=== PATIENT | female | born 1955 | race Caucasian/White ===

== ENCOUNTER → 2016-09-19 | Outpatient (CLI) | payer BC ==
[2016-09-19 16:08] LABS: Estradiol 46 pg/mL
== END | disposition home or self-care (01) ==
LOC: LABWHC1 14:53
PROVIDERS: ATTEND Surgery
DX: E34.9 Endocrine disorder, unspecified (principal); R53.81 Other malaise; R61 Generalized hyperhidrosis; G47.00 Insomnia, unspecified
CPT/HCPCS: 36415; 82670; 84140; 84144; 84402; 84403

== ENCOUNTER → 2017-07-30 | Outpatient (CLI) | payer BC ==
[2017-07-30 16:51] LABS: Progesterone 17.4 ng/mL
[2017-07-30 16:53] LABS: DHEA Sulfate 46.2 ug/dL (26.0-430.0)
== END | disposition home or self-care (01) ==
LOC: LABWHC1 09:50
PROVIDERS: ATTEND Surgery
DX: G47.00 Insomnia, unspecified (principal); E34.9 Endocrine disorder, unspecified; R68.82 Decreased libido; R61 Generalized hyperhidrosis; R53.81 Other malaise
CPT/HCPCS: 36415; 82627; 82670; 84140; 84144; 84402; 84403

== ENCOUNTER → 2018-01-29 | Outpatient (CLI) | payer OTHER ==
--- NOTE | 2018-02-04 14:50 | MM ---
Reason for exam: screening (asymptomatic). Last mammogram was performed 13 years and 3 months ago. History: Patient is postmenopausal. Taking estrogen for 1 year. Taking progesterone for 1 year. Physical Findings: A clinical breast exam by your physician is recommended on an annual basis and results should be correlated with mammographic findings. MG Screening Mammo w CAD Bilateral CC and MLO view(s) were taken. Prior study comparison: August 22, 2015, mammogram, performed at [facility]. May 31, 2014, mammogram, performed at [facility]. January 13, 2013, mammogram, performed at [facility]. October 02, 2007, mammogram, performed at [facility]. The breast tissue is heterogeneously dense. This may lower the sensitivity of mammography. Stable benign calcifications. There is no discrete abnormality. No significant changes when compared with prior studies. ASSESSMENT: Benign, BI-RAD 2 RECOMMENDATION: Routine screening mammogram of both breasts in 1 year.
== END | disposition home or self-care (01) ==
LOC: RADMAMWWP 13:54
DX: Z12.31 Encounter for screening mammogram for malignant neoplasm of breast (principal)
CPT/HCPCS: 77067

== ENCOUNTER → 2018-05-23 | Outpatient (CLI) | payer BC | END | disposition home or self-care (01) | LOC: LABWHC1 09:53 | PROVIDERS: ATTEND Surgery | DX: E34.9 Endocrine disorder, unspecified (principal); R53.81 Other malaise; G47.00 Insomnia, unspecified; R68.82 Decreased libido; R61 Generalized hyperhidrosis; Z51.81 Encounter for therapeutic drug level monitoring | CPT/HCPCS: 36415; 82670; 84403 ==

== ENCOUNTER → 2018-09-30 | Outpatient (CLI) | payer BC ==
[2018-09-30 16:02] LABS: Progesterone 41.1 ng/mL
== END | disposition home or self-care (01) ==
LOC: LABWHC1 07:43
PROVIDERS: ATTEND Surgery
DX: Z51.81 Encounter for therapeutic drug level monitoring (principal); R61 Generalized hyperhidrosis; E34.9 Endocrine disorder, unspecified; R53.81 Other malaise; G47.00 Insomnia, unspecified; Z79.899 Other long term (current) drug therapy
CPT/HCPCS: 36415; 82670; 84144; 84403

== ENCOUNTER → 2018-12-31 | Outpatient (CLI) | payer BC ==
--- NOTE | 2018-12-31 16:32 | BD ---
EXAMINATION TYPE: Axial Bone Density DATE OF EXAM: 12/31/2018 COMPARISON: 2014 CLINICAL HISTORY: osteoporosis Height: 5'3 Weight: 169 FRAX RISK QUESTIONS: Family History (Parent hip fracture): y Secondary Osteoporosis: RISK FACTORS HISTORY OF: History of Wrist Fracture: unsure which wrist When: age 15 Diet low in dairy products/other sources of calcium: y Postmenopausal woman: y Take estrogen and/or progesterone medications: y How lon years MEDICATIONS: Additional Medications: cholesterol Additional History: EXAM MEASUREMENTS: Bone mineral densitometry was performed using the [employer] System. Bone mineral density as measured about the Lumbar spine is: ----- L1-L4(G/cm2): 0.780 T Score Values are as follows: ----- L2: -3.5 ----- L3: -3.1 ----- L4: -3.5 ----- L1-L4: -3.3 Bone mineral density has: Increased 8.8% since study of: 11/16/2014 Bone mineral density about the R hip (g/cm2): 0.614 Bone mineral density about the L hip (g/cm2): 0.614 T Score values are as follows: -----R Neck: -3.1 -----L Neck: -3.0 -----R Total: -2.5 -----L Total: -2.3 Bone mineral density has: Decreased -0.3% since study of: 11/16/2014 IMPRESSION: Osteoporosis (T Score less than -2.5). There is increased fracture risk and therapy is usually indicated based on age. Re-Screen 1-2 years. NOTE: T-SCORE=SD OF THE YOUNG ADULT MEAN.
== END | disposition home or self-care (01) ==
LOC: RADBDWWP 12:39
PROVIDERS: ATTEND Obstetrics & Gynecology
DX: M81.0 Age-related osteoporosis without current pathological fracture (principal)
CPT/HCPCS: 77080

== ENCOUNTER → 2019-04-03 | Outpatient (CLI) | payer OTHER ==
--- NOTE | 2019-04-06 09:38 | MM ---
Reason for exam: screening (asymptomatic). Last mammogram was performed 1 year and 2 months ago. History: Patient is postmenopausal. Taking estrogen for 1 year. Taking progesterone for 1 year. Physical Findings: A clinical breast exam by your physician is recommended on an annual basis and results should be correlated with mammographic findings. MG Screening Mammo w CAD Bilateral CC and MLO view(s) were taken. Prior study comparison: January 29, 2018, bilateral MG screening mammo w CAD. August 22, 2015, mammogram, performed at [facility]. The breast tissue is heterogeneously dense. This may lower the sensitivity of mammography. Benign appearing bilateral calcifications. No suspicious abnormality. No significant changes when compared with prior studies. ASSESSMENT: Benign, BI-RAD 2 RECOMMENDATION: Routine screening mammogram of both breasts in 1 year.
== END | disposition home or self-care (01) ==
LOC: RADMAMWWP 10:57
PROVIDERS: ATTEND Nurse Practitioner Acute Care
DX: Z12.31 Encounter for screening mammogram for malignant neoplasm of breast (principal)
CPT/HCPCS: 77067

== ENCOUNTER → 2019-04-03 | Outpatient (CLI) | payer BC ==
[2019-04-03 19:42] LABS: DHEA Sulfate 49.4 ug/dL (26.0-430.0); Progesterone 28.4 ng/mL
[2019-04-03 19:49] LABS: African American GFR (CKD) 90.3 (60.0-200.0); Non-African American GFR(CKD) 77.9 (60.0-200.0)
[2019-04-03 19:58] LABS: Estradiol 56.5 pg/mL
== END ==
LOC: LABWHC1 11:41
PROVIDERS: ATTEND Physician Assistant
DX: E34.9 Endocrine disorder, unspecified (principal); G47.00 Insomnia, unspecified; Z51.81 Encounter for therapeutic drug level monitoring; R53.81 Other malaise; R61 Generalized hyperhidrosis
CPT/HCPCS: 36415; 82565; 82627; 82670; 84140; 84144; 84402; 84403; 84439; 84443; 84481

== ENCOUNTER → 2019-09-29 | Outpatient (CLI) | payer BC, MEDICARE ==
--- NOTE | 2019-09-29 17:02 | US ---
EXAMINATION TYPE: US pelvis complete transvag DATE OF EXAM: 09/29/2019 COMPARISON: NONE CLINICAL HISTORY: D25.9 Leiomyoma of uterus, unspecified,N95.0 POST MENOPAUSAL. Patient states having a history of fibroid. On HRT x 3 years. Bleeding x 1 month. TECHNIQUE: Transvaginal (TV) and Transabdominal (TA) . Transabdominal sonographic images of the pel vis were acquired. Transvaginal sonographic images were medically necessary to better assess the fol lowing anatomy: Endometrium Date of LMP: PM, EXAM MEASUREMENTS: Uterus: 7.4 x 4.1 x 3.1 cm Endometrial Stripe: 0.2 cm 1. Uterus: Anteverted Two fibroids seen in fundal right uterus. 1= 1.4 x 1.3 x 1.4 cm. 2= 6.4 x 4.8 x 5.4 cm 2. Endometrium: wnl 3. Right Ovary: Obscured by overlying bowel gas 4. Left Ovary: Obscured by overlying bowel gas 5. Bilateral Adnexa: wnl 6. Posterior cul-de-sac: no free fluid Shadowing intramural fibroid seen in the right uterus as detailed above. IMPRESSION: Prominent fibroid uterus.
== END | disposition home or self-care (01) ==
LOC: RADUSWWP 15:35
PROVIDERS: ATTEND Obstetrics & Gynecology
DX: D25.9 Leiomyoma of uterus, unspecified (principal); N95.0 Postmenopausal bleeding
CPT/HCPCS: 76830; 76856

== ENCOUNTER → 2020-04-05 | Outpatient (CLI) | payer OTHER ==
--- NOTE | 2020-04-06 10:05 | MM ---
Reason for exam: screening (asymptomatic). Last mammogram was performed 1 year ago. History: Patient is postmenopausal. Took estrogen for 1 year. Took progesterone for 1 year. Physical Findings: A clinical breast exam by your physician is recommended on an annual basis and results should be correlated with mammographic findings. MG Screening Mammo w CAD Bilateral CC and MLO view(s) were taken. Prior study comparison: April 03, 2019, bilateral MG screening mammo w CAD. January 29, 2018, bilateral MG screening mammo w CAD. The breast tissue is heterogeneously dense. This may lower the sensitivity of mammography. Finding: There are typically benign round, grouped/clustered calcifications in the posterior position of the left breast. Developing asymmetry bilateral anterior middle depth inferiorly. ASSESSMENT: Incomplete: need additional imaging evaluation, BI-RAD 0 RECOMMENDATION: Special view mammogram of both breasts. If lesion persists on supplemental views, image directed ultrasound is recommended. [facility] will attempt to contact patient to return for supplemental views and ultrasound if indicated.
== END | disposition home or self-care (01) ==
LOC: RADMAMWWP 11:00
PROVIDERS: ATTEND Family Medicine
DX: Z12.31 Encounter for screening mammogram for malignant neoplasm of breast (principal); Z88.5 Allergy status to narcotic agent; Z88.8 Allergy status to other drugs, medicaments and biological substances; Z91.040 Latex allergy status
CPT/HCPCS: 77067

== ENCOUNTER → 2020-05-20 | Outpatient (CLI) | payer OTHER ==
--- NOTE | 2020-05-23 09:06 | MM ---
Reason for exam: additional evaluation requested from abnormal screening. Last mammogram was performed 2 months ago. History: Patient is postmenopausal. Took estrogen for 2 years. Took progesterone for 2 years. Took other hormone for 2 years. Physical Findings: Nurse did not find any significant physical abnormalities on exam. MG Work Up Mamm w CAD BILAT Bilateral LM and spot compression MLO view(s) were taken. Prior study comparison: April 05, 2020, bilateral MG screening mammo w CAD. April 03, 2019, bilateral MG screening mammo w CAD. The breast tissue is heterogeneously dense. This may lower the sensitivity of mammography. Inferior asymmetric densities on both sides disperse on additional views. No significant new findings when compared with previous films. These results were verbally communicated with the patient and result sheet given to the patient on 05/20/20. ASSESSMENT: Negative, BI-RAD 1 RECOMMENDATION: Return to routine screening mammogram schedule for both breasts.
== END | disposition home or self-care (01) ==
LOC: RADMAMWWP 15:02
PROVIDERS: ATTEND Family Medicine
DX: R92.8 Other abnormal and inconclusive findings on diagnostic imaging of breast (principal)
CPT/HCPCS: 77066

== ENCOUNTER 2023-09-15 20:56 | Inpatient (IN) | payer OTHER, MEDICARE ==
[2023-09-15 22:34] LABS: Basophils % (A) 0 %; Eosinophils % (A) 0 %; HCT 39.1 % (34.0-46.0); HGB 12.3 gm/dL (11.4-16.0); Lymphocytes # (A) 1.2 k/uL (1.0-4.8); Lymphocytes % (A) 8 %; MCH 30.1 pg (25.0-35.0); MCHC 31.4 g/dL (31.0-37.0); MCV 95.8 fL (80.0-100.0); Mean Platelet Volume 10.1; Monocytes # (A) 0.8 k/uL (0-1.0); Monocytes % (A) 6 %; Neutrophils # (A) 12.8 k/uL (1.3-7.7); Neutrophils % (A) 85 %; Platelet Count 323 k/uL (150-450); RBC 4.09 m/uL (3.80-5.40); RDW 14.4 % (11.5-15.5)
[2023-09-15 22:44] LABS: Appearance,Urine Turbid (Clear); Bacteria,Urine Rare /hpf; Bilirubin,Urine Negative (Negative); Blood,Urine Small (Negative); Color,Urine Light Yellow; Glucose,Urine (UA) Negative (Negative); Ketones,Urine Negative (Negative); Leukocyte Esterase,Urine Large (Negative); Mucus,Urine Rare /hpf; Nitrite,Urine Positive (Negative); Protein,Urine Trace (Negative); RBC,Urine 30 /hpf (0-5); Specific Gravity,Urine 1.015 (1.001-1.035); Squamous Epithelial Cell,Urine 3 /hpf (0-4); Urobilinogen,Urine <2.0 mg/dL (<2.0); WBC,Urine >182 /hpf (0-5)
[2023-09-15 22:53] LABS: ALT 11 U/L (4-34); AST 18 U/L (14-36); African American GFR (CKD) 70 (>60 ml/min/1.73 sqM); Albumin 3.7 g/dL (3.5-5.0); Alkaline Phosphatase 100 U/L (38-126); Anion Gap 6 mmol/L; Blood Urea Nitrogen 22 mg/dL (7-17); Calcium 9.6 mg/dL (8.4-10.2); Carbon Dioxide 21 mmol/L (22-30); Chloride 105 mmol/L (98-107); Glucose 128 mg/dL (74-99); Non-African American GFR(CKD) 61 (>60 ml/min/1.73 sqM); Potassium 4.3 mmol/L (3.5-5.1); Sodium 132 mmol/L (137-145); Total Bilirubin 0.8 mg/dL (0.2-1.3); Total Protein 6.6 g/dL (6.3-8.2)
--- NOTE | 2023-09-16 01:07 | ED ---
Back Pain HPI <Mendel Esposito - Last Filed: 09/16/23 06:05> - General Source: patient Limitations: no limitations <Reshma Starks - Last Filed: 09/16/23 23:44> - General Chief Complaint: Back Pain/Injury Stated Complaint: ABD Pain Time Seen by Provider: 09/15/23 21:10 - History of Present Illness Initial Comments: 67-year-old female presents emergency department for left-sided flank pain. States has been going on for the past 3 days and is getting worse. States area is tender to palpation. She has been spending time in the hot tub in order to help alleviate her pain. States that the pain was at its height today. She has no dysuria, hematuria or difficulty voiding. No fevers. No history of kidney stones however she has had imaging through her chiropractic office who told her that he has a kidney stone. She denies any vaginal bleeding. No constipation, diarrhea, black or bloody stools. Patient does have a history of A-fib but does not take blood thinners. No other alleviating, precipitating modifying factors (Reshma Starks) - Related Data Home Medications Medication Instructions Recorded Confirmed No Known Home Medications 09/16/23 09/16/23 Allergies Allergy/AdvReac Type Severity Reaction Status Date / Time latex Allergy Rash/Hives Verified 09/16/23 09:04 codeine AdvReac Hallucinati Verified 09/16/23 09:04 ons Review of Systems ROS Other: All systems not noted in ROS Statement are negative. <Mendel Esposito - Last Filed: 09/16/23 06:05> ROS Other: All systems not noted in ROS Statement are negative. <Reshma Starks - Last Filed: 09/16/23 23:44> ROS Statement: Those systems with pertinent positive or pertinent negative responses have been documented in the HPI. Past Medical History Past Medical History: Atrial Fibrillation Additional Past Medical History / Comment(s): tumor (begein) uterus History of Any Multi-Drug Resistant Organisms: None Reported Past Surgical History: Section Past Psychological History: Anxiety Smoking Status: Never smoker Past Alcohol Use History: None Reported Past Drug Use History: None Reported <Reshma Starks - Last Filed: 09/16/23 23:44> General Exam Limitations: no limitations General appearance: alert, in no apparent distress Head exam: Present: atraumatic, normocephalic, normal inspection Eye exam: Present: normal appearance, PERRL, EOMI. Absent: scleral icterus, conjunctival injection, periorbital swelling ENT exam: Present: normal exam, mucous membranes moist Neck exam: Present: normal inspection. Absent: tenderness, meningismus, lymphadenopathy Respiratory exam: Present: normal lung sounds bilaterally. Absent: respiratory distress, wheezes, rales, rhonchi, stridor Cardiovascular Exam: Present: regular rate, normal rhythm, normal heart sounds. Absent: systolic murmur, diastolic murmur, rubs, gallop, clicks GI/Abdominal exam: Present: soft, normal bowel sounds. Absent: distended, tenderness, guarding, rebound, rigid Extremities exam: Present: normal inspection, full ROM, normal capillary refill. Absent: tenderness, pedal edema, joint swelling, calf tenderness Back exam: Present: CVA tenderness (L) Neurological exam: Present: alert, oriented X3, CN II-XII intact Psychiatric exam: Present: normal affect, normal mood Skin exam: Present: warm, dry, intact, normal color. Absent: rash <Reshma Starks A - Last Filed: 09/16/23 23:44> Course Vital Signs 09/15/23 09/16/23 09/16/23 21:07 01:33 06:22 Temperature 98.2 F Pulse Rate 87 80 86 Pulse Rate [ Pulse Oximetery ] Respiratory 18 18 18 Rate Blood Pressure 115/78 128/83 126/70 Blood Pressure [Right Arm] O2 Sat by Pulse 98 95 98 Oximetry 09/16/23 09/16/23 09/16/23 07:00 09:00 09:45 Temperature Pulse Rate 68 68 85 Pulse Rate [ Pulse Oximetery ] Respiratory 16 16 20 Rate Blood Pressure 120/60 130/60 134/87 Blood Pressure [Right Arm] O2 Sat by Pulse 98 98 98 Oximetry 09/16/23 09/16/23 09/16/23 13:12 18:31 21:08 Temperature Pulse Rate 68 96 Pulse Rate [ 92 Pulse Oximetery ] Respiratory 18 18 18 Rate Blood Pressure 138/76 123/66 Blood Pressure 132/77 [Right Arm] O2 Sat by Pulse 99 97 98 Oximetry Medical Decision Making - Lab Data Result diagrams: 09/15/23 21:56 07/07/24 21:56 <Mendel Esposito - Last Filed: 09/16/23 06:05> - Lab Data Result diagrams: 09/15/23 21:56 09/15/23 21:56 <Reshma Starks Marva - Last Filed: 09/16/23 23:44> - Medical Decision Making CT shows a proximal stone in the left ureter with hydronephrosis. Patient does have signs of urinary tract infection and an elevated white blood cell count. She is covered with IV antibiotics, given IV fluid. Case discussed with Dr. Johnson covering for urology, recommends admission to medicine with consult. Case discussed with Dr. Mojica who will admit. (Mendel Esposito) Was pt. sent in by a medical professional or institution (, PA, WILDLIFE CONTROL OPERATOR, urgent care, hospital, or shelter...) When possible be specific @ -No Did you speak to anyone other than the patient for history (EMS, parent, family, police, friend...)? What history was obtained from this source @ -No Did you review nursing and triage notes (agree or disagree)? Why? @ -I reviewed and agree with nursing and triage notes Were old charts reviewed (outside hosp., previous admission, EMS record, old EKG, old radiological studies, urgent care reports/EKG's, shelter records)? Report findings @ -No old charts were reviewed Differential Diagnosis (chest pain, altered mental status, abdominal pain women, abdominal pain men, vaginal bleeding, weakness, fever, dyspnea, syncope, headache, dizziness, GI bleed, back pain, seizure, CVA, palpatations, mental health, musculoskeletal)? @ -Differential Abdominal Pain Women: Appendicitis, Cholecystitis, diverticulosis, ischemic bowel, pancreatitis, hepatitis, UTI, gastroenteritis, AAA, incarcerated hernia, bowel obstruction, constipation, inflammatory bowel, hepatitis, peptic ulcer disease, splenic infarction, perforated viscus, vulvitis, ovarian torsion, PID, kidney stone, placenta abruption, this is not meant to be an all-inclusive list EKG interpreted by me (3pts min.). @ -Not done X-rays interpreted by me (1pt min.). @ -None done CT interpreted by me (1pt min.). @ -Awaiting results at this time U/S interpreted by me (1pt. min.). @ -None done What testing was considered but not performed or refused? (CT, X-rays, U/S, labs)? Why? @ -None What meds were considered but not given or refused? Why? @ -None Did you discuss the management of the patient with other professionals (professionals i.e. DrAric, PA, WILDLIFE CONTROL OPERATOR, lab, RT, psych nurse, social work assistant, manager community relations, teacher, command center officer, case packer and sealer)? Give summary @ -spoke with Dr. Esposito Was smoking cessation discussed for >3mins.? @ -No Was critical care preformed (if so, how long)? @ -No Were there social determinants of health that impacted care today? How? (Homelessness, low income, unemployed, alcoholism, drug addiction, transportation, low edu. Level, literacy, decrease access to med. care, alf, rehab)? @ -No Was there de-escalation of care discussed even if they declined (Discuss DNR or withdrawal of care, Hospice)? DNR status @ -No What co-morbidities impacted this encounter? (DM, HTN, Smoking, COPD, CAD, Cancer, CVA, ARF, Chemo, Hep., AIDS, mental health diagnosis, sleep apnea, morbid obesity)? @ -None Was patient admitted / discharged? Hospital course, mention meds given and route, prescriptions, significant lab abnormalities, going to OR and other pertinent info. @ -Upon arrival patient seen and evaluated in room 19. Thorough history and physical exam was performed. IV access was established. Laboratory studies were conducted. Urinalysis is remarkable for nitrites and white blood cells. Patient given a dose of Rocephin after blood cultures obtained. CT is performed. CT results are pending at this time. Patient will be signed out to Dr. Esposito. (Reshma Starks) - Lab Data Lab Results 09/15/23 09/15/23 09/15/23 Range/Units 21:08 21:56 21:56 WBC 15.0 H (3.8-10.6) k/uL RBC 4.09 (3.80-5.40) m/uL Hgb 12.3 (11.4-16.0) gm/dL Hct 39.1 (34.0-46.0) % MCV 95.8 (80.0-100.0) fL MCH 30.1 (25.0-35.0) pg MCHC 31.4 (31.0-37.0) g/dL RDW 14.4 (11.5-15.5) % Plt Count 323 (150-450) k/uL MPV 10.1 Neutrophils % 85 % Lymphocytes % 8 % Monocytes % 6 % Eosinophils % 0 % Basophils % 0 % Neutrophils # 12.8 H (1.3-7.7) k/uL Lymphocytes # 1.2 (1.0-4.8) k/uL Monocytes # 0.8 (0-1.0) k/uL Eosinophils # 0.0 (0-0.7) k/uL Basophils # 0.0 (0-0.2) k/uL Sodium 132 L (137-145) mmol/L Potassium 4.3 (3.5-5.1) mmol/L Chloride 105 (98-107) mmol/L Carbon Dioxide 21 L (22-30) mmol/L Anion Gap 6 mmol/L BUN 22 H (7-17) mg/dL Creatinine 0.97 (0.52-1.04) mg/dL Est GFR (CKD-EPI)AfAm 70 (>60 ml/min/1.73 sqM) Est GFR (CKD-EPI)NonAf 61 (>60 ml/min/1.73 sqM) Glucose 128 H (74-99) mg/dL Plasma Lactic Acid Bassem (0.7-2.0) mmol/L Calcium 9.6 (8.4-10.2) mg/dL Total Bilirubin 0.8 (0.2-1.3) mg/dL AST 18 (14-36) U/L ALT 11 (4-34) U/L Alkaline Phosphatase 100 (38-126) U/L Total Protein 6.6 (6.3-8.2) g/dL Albumin 3.7 (3.5-5.0) g/dL Urine Color Light Yellow Urine Appearance Turbid H (Clear) Urine pH 8.0 (5.0-8.0) Ur Specific [place] 1.015 (1.001-1.035) Urine Protein Trace H (Negative) Urine Glucose (UA) Negative (Negative) Urine Ketones Negative (Negative) Urine Blood Small H (Negative) Urine Nitrite Positive H (Negative) Urine Bilirubin Negative (Negative) Urine Urobilinogen <2.0 (<2.0) mg/dL Ur Leukocyte Esterase Large H (Negative) Urine RBC 30 H (0-5) /hpf Urine WBC >182 H (0-5) /hpf Urine WBC Clumps Moderate H (None) /hpf Ur Squamous Epith Cells 3 (0-4) /hpf Urine Bacteria Rare H (None) /hpf Urine Mucus Rare H (None) /hpf 09/16/23 Range/Units 03:15 WBC (3.8-10.6) k/uL RBC (3.80-5.40) m/uL Hgb (11.4-16.0) gm/dL Hct (34.0-46.0) % MCV (80.0-100.0) fL MCH (25.0-35.0) pg MCHC (31.0-37.0) g/dL RDW (11.5-15.5) % Plt Count (150-450) k/uL MPV Neutrophils % % Lymphocytes % % Monocytes % % Eosinophils % % Basophils % % Neutrophils # (1.3-7.7) k/uL Lymphocytes # (1.0-4.8) k/uL Monocytes # (0-1.0) k/uL Eosinophils # (0-0.7) k/uL Basophils # (0-0.2) k/uL Sodium (137-145) mmol/L Potassium (3.5-5.1) mmol/L Chloride (98-107) mmol/L Carbon Dioxide (22-30) mmol/L Anion Gap mmol/L BUN (7-17) mg/dL Creatinine (0.52-1.04) mg/dL Est GFR (CKD-EPI)AfAm (>60 ml/min/1.73 sqM) Est GFR (CKD-EPI)NonAf (>60 ml/min/1.73 sqM) Glucose (74-99) mg/dL Plasma Lactic Acid Bassem 1.0 (0.7-2.0) mmol/L Calcium (8.4-10.2) mg/dL Total Bilirubin (0.2-1.3) mg/dL AST (14-36) U/L ALT (4-34) U/L Alkaline Phosphatase (38-126) U/L Total Protein (6.3-8.2) g/dL Albumin (3.5-5.0) g/dL Urine Color Urine Appearance (Clear) Urine pH (5.0-8.0) Ur Specific [place] (1.001-1.035) Urine Protein (Negative) Urine Glucose (UA) (Negative) Urine Ketones (Negative) Urine Blood (Negative) Urine Nitrite (Negative) Urine Bilirubin (Negative) Urine Urobilinogen (<2.0) mg/dL Ur Leukocyte Esterase (Negative) Urine RBC (0-5) /hpf Urine WBC (0-5) /hpf Urine WBC Clumps (None) /hpf Ur Squamous Epith Cells (0-4) /hpf Urine Bacteria (None) /hpf Urine Mucus (None) /hpf Disposition Is patient prescribed a controlled substance at d/c from ED?: No Time of Disposition: 06:07 <Mendel Esposito - Last Filed: 09/16/23 06:05> <Reshma Starks - Last Filed: 09/16/23 23:44> Clinical Impression: Calculus of kidney, UTI (urinary tract infection) Disposition: ADMITTED IP TO THIS HOSP Condition: Stable
[2023-09-16] MEDS: KETOROLAC 15 MG/ML 1 ML VIAL IVP STA (01:26)
[2023-09-16] MEDS: cefTRIAXone IN SWFI 1,000 MG/10 ML SYRINGE IVP STA (01:28)
--- NOTE | 2023-09-16 02:30 | CT ---
EXAM: CT Abdomen and Pelvis Without Intravenous Contrast CLINICAL HISTORY: ITS.REASON CT Reason: flank pain, ? stone TECHNIQUE: Axial computed tomography images of the abdomen and pelvis without intravenous contrast. CTDI is 8.6 mGy and DLP is 461.5 mGy-cm. This CT exam was performed using one or more of the following dose reduction techniques: automated exposure control, adjustment of the mA and/or kV according to patient size, and/or use of iterative reconstruction technique. COMPARISON: No relevant prior studies available. FINDINGS: Lung bases: Unremarkable. No mass. No consolidation. ABDOMEN: Liver: RIGHT hepatic cystic lesion measures 3.8 x 3.1 cm. Gallbladder and bile ducts: Unremarkable. No calcified stones. No ductal dilation. Pancreas: Unremarkable. No ductal dilation. Spleen: Unremarkable. No splenomegaly. Adrenals: Unremarkable. No mass. Kidneys and ureters: Obstructing 10 x 9 mm stone in the LEFT UPJ. Moderate hydronephrosis of the LEFT kidney with perinephric stranding. No remaining renal stones. Stomach and bowel: Diverticulosis, without acute diverticulitis. No small bowel obstruction. No free intraperitoneal air. PELVIS: Appendix: No findings to suggest acute appendicitis. Bladder: Unremarkable. No stones. Reproductive: Unremarkable as visualized. ABDOMEN and PELVIS: Intraperitoneal space: Unremarkable. No free air. No significant fluid collection. Bones/joints: Degenerative changes of the spine. No acute fracture. No dislocation. Soft tissues: Unremarkable. Vasculature: Atherosclerotic changes of the aorta. No abdominal aortic aneurysm. Lymph nodes: Unremarkable. No enlarged lymph nodes. IMPRESSION: 1. Obstructing 10 x 9 mm stone in the LEFT UPJ. Moderate hydronephrosis of the LEFT kidney with perinephric stranding. 2. Diverticulosis, without acute diverticulitis. No small bowel obstruction. No free intraperitoneal air.
[2023-09-16] MEDS: SODIUM CHLORIDE 0.9% 1,000 ML IV SCH (03:11)
[2023-09-16] MEDS ORDERED: NALOXONE 0.4 MG/ML 1 ML VIAL IV PRN (06:04)
--- NOTE | 2023-09-16 08:05 | P.GSCN ---
History of Present Illness Consult date: 09/16/23 History of present illness: 67 yo female presented to the er with a 3 day history of back pain. SHe was evaluated in the er and found to have a 1 cm left upj stone. SHe has no fever or chills Her wbc is 15 k and her ua ooks infected. She has no history of stones. Her brother has stones. She's admitted for ab , pain control and urological evaluation. Review of Systems All systems: negative - Constitutional Denies fever, Denies weight loss - EENT Eyes: denies blurred vision Ears, nose, mouth and throat: Denies dysphagia - Cardiovascular Denies chest pain, Denies shortness of breath - Respiratory Denies cough, Denies 7 - Gastrointestinal Reports as per HPI - Genitourinary Genitourinary: Denies dysuria, Denies hematuria - Integumentary Denies rash, Denies unusual bruising - Neurological Denies headaches, Denies syncope - Hematologic/Lymphatic Denies easy bleeding, Denies easy bruising Past Medical History Past Medical History: Atrial Fibrillation Additional Past Medical History / Comment(s): tumor (begein) uterus History of Any Multi-Drug Resistant Organisms: None Reported Past Surgical History: Section Past Psychological History: Anxiety Smoking Status: Never smoker Past Alcohol Use History: None Reported Past Drug Use History: None Reported Medications and Allergies Allergies Allergy/AdvReac Type Severity Reaction Status Date / Time codeine AdvReac Hallucinati Verified 09/15/23 21:11 ons latex AdvReac Rash/Hives Verified 09/15/23 21:11 Surgical - Exam Vital Signs Temp Pulse Resp BP Pulse Ox 98.2 F 87 18 115/78 98 09/15/23 21:07 09/15/23 21:07 09/15/23 21:07 09/15/23 21:09/15/23 21:07 - General well developed, well nourished, no distress - Eyes normal ocular movement, no icteric - ENT no hearing loss, no congestion - Neck no masses, trachea midline - Respiratory normal respiratory effort, clear to auscultation - Abdomen Abdomen: soft, non tender, no guarding, no rigid, no rebound - Integumentary no rash, no abnormal pigmentation - Neurologic no disoriented, no combative - Psychiatric oriented to time, oriented to person, oriented to place, speech is normal, memory intact Results - Labs 09/15/23 21:56 09/15/23 21:56 Abnormal Lab Results - Last 24 Hours (Table) 09/15/23 09/15/23 09/15/23 Range/Units 21:08 21:56 21:56 WBC 15.0 H (3.8-10.6) k/uL Neutrophils # 12.8 H (1.3-7.7) k/uL Sodium 132 L (137-145) mmol/L Carbon Dioxide 21 L (22-30) mmol/L BUN 22 H (7-17) mg/dL Glucose 128 H (74-99) mg/dL Urine Appearance Turbid H (Clear) Urine Protein Trace H (Negative) Urine Blood Small H (Negative) Urine Nitrite Positive H (Negative) Ur Leukocyte Esterase Large H (Negative) Urine RBC 30 H (0-5) /hpf Urine WBC >182 H (0-5) /hpf Urine WBC Clumps Moderate H (None) /hpf Urine Bacteria Rare H (None) /hpf Urine Mucus Rare H (None) /hpf Diabetes panel 09/15/23 Range/Units 21:56 Sodium 132 L (137-145) mmol/L Potassium 4.3 (3.5-5.1) mmol/L Chloride 105 (98-107) mmol/L Carbon Dioxide 21 L (22-30) mmol/L BUN 22 H (7-17) mg/dL Creatinine 0.97 (0.52-1.04) mg/dL Glucose 128 H (74-99) mg/dL Calcium 9.6 (8.4-10.2) mg/dL AST 18 (14-36) U/L ALT 11 (4-34) U/L Alkaline Phosphatase 100 (38-126) U/L Total Protein 6.6 (6.3-8.2) g/dL Albumin 3.7 (3.5-5.0) g/dL Calcium panel 09/15/23 Range/Units 21:56 Calcium 9.6 (8.4-10.2) mg/dL Albumin 3.7 (3.5-5.0) g/dL Pituitary panel 09/15/23 Range/Units 21:56 Sodium 132 L (137-145) mmol/L Potassium 4.3 (3.5-5.1) mmol/L Chloride 105 (98-107) mmol/L Carbon Dioxide 21 L (22-30) mmol/L BUN 22 H (7-17) mg/dL Creatinine 0.97 (0.52-1.04) mg/dL Glucose 128 H (74-99) mg/dL Calcium 9.6 (8.4-10.2) mg/dL Adrenal panel 09/15/23 Range/Units 21:56 Sodium 132 L (137-145) mmol/L Potassium 4.3 (3.5-5.1) mmol/L Chloride 105 (98-107) mmol/L Carbon Dioxide 21 L (22-30) mmol/L BUN 22 H (7-17) mg/dL Creatinine 0.97 (0.52-1.04) mg/dL Glucose 128 H (74-99) mg/dL Calcium 9.6 (8.4-10.2) mg/dL Total Bilirubin 0.8 (0.2-1.3) mg/dL AST 18 (14-36) U/L ALT 11 (4-34) U/L Alkaline Phosphatase 100 (38-126) U/L Total Protein 6.6 (6.3-8.2) g/dL Albumin 3.7 (3.5-5.0) g/dL - Imaging CT scan - abdomen: report reviewed, image reviewed CT scan - pelvis: report reviewed, image reviewed Assessment and Plan Assessment: Impression: left upj stone, urine infection Plan:At present the patient does not appear septic. I discussed the treatment options for this stone. She doesnot appear septic at this point. We will see how she progresses over the next 24 hours. She will deliberate on the treatment options that I discussed with her.
[2023-09-16] MEDS: LACTATED RINGERS 1,000 ML IV SCH (09:41)
[2023-09-16] MEDS: HYDROmorphone 0.5 MG/0.5 ML SYRINGE IVP PRN (09:41)
--- NOTE | 2023-09-16 15:53 | P.HPIM ---
History of Present Illness H&P Date: 09/16/23 Chief Complaint: back pain History of Present Illness: Patient is a 67-year-old female with past medical history of atrial fibrillation and anxiety presents to the ED with back pain on the left side flank. She states this pain occurred 3 to 4 days ago and describes it as a constant colicky pain that has gotten worse over the days. Pain radiates to the left groin and under the umbilicus. States the pain was 8 out of 10 at its worst. She denies any dysuria, hematuria, difficulty voiding, nausea, vomiting, constipation. She admits to having an increase in urinary frequency and urgency and says she was at one point she was going to the restroom at least once every 2 hours. Says that ibuprofen only worked temporarily. She states her brother has a history of kidney stones. Denies any history of tobacco use, alcohol, drugs. In the ED her vitals were stable with a blood pressure of 126/70, pulse 86, respiratory rate 18, temp of 98.2 F, O2 98. Urinalysis showed elevated white blood count 182, positive nitrates, positive leukocyte esterase. CBC showed a leukocytosis with positive neural neutrophils, no left shift. CT abdomen/pelvis displayed a 10 x 9 mm stone obstructing the left uteropelvic junction with moderate hydronephrosis of the left kidney with perinephric stranding. In the ED patient was seen by urologist and is to undergo conservative management for the time being, but discussed potential surgical interventions. Patient admitted for further urological workup. Pertinent positives and negatives as discussed above, a complete review of systems was performed and all other systems are negative. Vitals: Signs Reviewed Physical Exam: General: nontoxic, no distress, appears at stated age, does not appear septic Derm warm, dry, intact Head: atraumatic, normocephalic, symmetric Eyes: EOMI, no lid lag, anicteric sclera Mouth: no lip lesion, mucus membranes moist Cardiovascular: S1 S2 reg, no murmur, rubs, or gallops Lungs: CTA bilateral, no rhonchi, no rales, no accessory muscle use Abdominal: soft, non-tender to palpataion, no appreciable organomegaly Back: positive for left-sided costovertebral tenderness Extremities: no gross muscle atrophy, no edema, no contractures Neuro: Alert, Oriented, CNII-XII grossly intact, gait normal Psych: well appearing, appropriate affect Data Received Today: Pertinent Labs WBC 15, creatinine 0.97, glucose 128. lactic acid: 1.0 U/A: WBC 182, positive leuk esterase, positive nitrites Imaging CT abdomen/pelvis displayed a 10 x 9 mm stone obstructing the left uteropelvic junction with moderate hydronephrosis of the left kidney with perinephric stranding, independently interpreted. Assessment and Plan: Patient is a 67-year-old female with past medical history of atrial fibrillation that presents with back pain on the left flank. Left obstructing nephrolithiasis Moderate hydronephrosis of left kidney CT abdomen/pelvis displayed a 10 x 9 mm stone obstructing the left uteropelvic junction with moderate hydronephrosis of the left kidney Pain management with acetaminophen 650 mg PO every 6 hours as needed. Will consider using NSAID if she is not able to tolerate Tylenol. Dilaudid 0.5 mg IVP q3hr prn if any other pain management is not adequate. NPO diet Fluid management with LR at 75 mls/hr Urologist consulted. Note reviewed. Wants to try conservative management first. Discussed surgical options if conservative management is not adequate. Acute pyelonephritis secondary to nephrolithiasis left kidney with perinephric stranding on CT abd/pelvis d/t renal stone in left UPJ 1gm ceftriaxone IV q24hrs Urine and blood cultures pending Follow-up with CBC and CMP Hyponatremia, mild CYNTHIA, likely prerenal patient is now euvolemic Continue on fluid management with LR at 75 mls/hr Monitor with CMP Atrial fibrillation, chronic takes metoprolol and flecainide prn for A-fib. Hold home meds until reconciled. Patient is not on anticoagulation Hyperglycemia, likely stress related Monitor with CMP F: lactated Ringer's at 75 mls/hr E: replete as needed N: Regular A: fall precautions DVT ppx: Subcu heparin Code status: Full Anticipated discharge place: Pending clinical course Anticipated discharge time: Pending clinical course The patient is admitted with an anticipated greater than 2 midnight stay as inpatient status for evaluation of acute pyelonephritis. Surrogate decision-maker: Finesse A total of 55 minutes was spent on the care of this complex patient more than 50% of the time was spent in counseling and care coordination. I have seen and evaluated the patient today. Discussed with the resident and agree with the residents finding and plan as documented in the resident's note. Changes highlighted in blue font. Past Medical History Past Medical History: Atrial Fibrillation Additional Past Medical History / Comment(s): tumor (begein) uterus History of Any Multi-Drug Resistant Organisms: None Reported Past Surgical History: Section Past Psychological History: Anxiety Smoking Status: Never smoker Past Alcohol Use History: None Reported Past Drug Use History: None Reported Medications and Allergies Home Medications Medication Instructions Recorded Confirmed Type No Known Home Medications 09/16/23 09/16/23 History Allergies Allergy/AdvReac Type Severity Reaction Status Date / Time latex Allergy Rash/Hives Verified 09/16/23 09:04 codeine AdvReac Hallucinati Verified 09/16/23 09:04 ons Physical Exam Vitals: Vital Signs Temp Pulse Resp BP Pulse Ox 09/16/23 13:12 68 18 138/76 99 09/16/23 09:45 85 20 134/87 98 09/16/23 09:00 68 16 130/60 98 09/16/23 07:00 68 16 120/60 98 09/16/23 06:22 86 18 126/70 98 09/16/23 01:33 80 18 128/83 95 09/15/23 21:07 98.2 F 87 18 115/78 98 Intake and Output 09/15/23 09/16/23 09/16/23 22:59 06:59 14:59 Other: Weight 69.4 kg Results CBC & Chem 7: 09/15/23 21:56 09/15/23 21:56 Labs: Abnormal Lab Results - Last 24 Hours (Table) 09/15/23 09/15/23 09/15/23 Range/Units 21:08 21:56 21:56 WBC 15.0 H (3.8-10.6) k/uL Neutrophils # 12.8 H (1.3-7.7) k/uL Sodium 132 L (137-145) mmol/L Carbon Dioxide 21 L (22-30) mmol/L BUN 22 H (7-17) mg/dL Glucose 128 H (74-99) mg/dL Urine Appearance Turbid H (Clear) Urine Protein Trace H (Negative) Urine Blood Small H (Negative) Urine Nitrite Positive H (Negative) Ur Leukocyte Esterase Large H (Negative) Urine RBC 30 H (0-5) /hpf Urine WBC >182 H (0-5) /hpf Urine WBC Clumps Moderate H (None) /hpf Urine Bacteria Rare H (None) /hpf Urine Mucus Rare H (None) /hpf
[2023-09-17] MEDS: HEPARIN SODIUM,PORCINE 5,000 UNIT/ML 1 ML VIAL SQ SCH (00:29)
[2023-09-17 08:39] LABS: Basophils # (A) 0.03 X 10*3/uL (0.00-0.10); Basophils % (A) 0.2 %; Eosinophils # (A) 0.01 X 10*3/uL (0.04-0.35); Eosinophils % (A) 0.1 %; HCT 32.1 % (37.2-46.3); HGB 10.2 g/dL (12.0-15.0); Lymphocytes # (A) 1.78 X 10*3/uL (0.90-5.00); MCH 30.8 pg (27.0-32.0); MCHC 31.8 g/dL (32.0-37.0); Mean Platelet Volume 12.3 FL (9.5-12.2); Monocytes # (A) 1.09 X 10*3/uL (0.20-1.00); Monocytes % (A) 8.6 %; NRBC Per 100 WBC 0 X 10*3/uL (0.00-0.01); Neutrophils # (A) 9.74 X 10*3/uL (1.80-7.70); Neutrophils % (A) 76.4 %; Platelet Count 218 X 10*3/uL (140-440); RBC 3.31 X 10*6/uL (4.10-5.20); RDW 14.2 % (11.5-14.5); WBC 12.74 X 10*3/uL (4.50-10.00)
[2023-09-17] MEDS: ACETAMINOPHEN TAB 325 MG TAB PO PRN (08:51)
[2023-09-17 08:52] LABS: ALT 11 U/L (8-44); AST 15 U/L (13-35); Albumin 3.1 g/dL (3.8-4.9); Albumin/Globulin Ratio 1.41 Ratio (1.60-3.17); Alkaline Phosphatase 85 U/L (41-126); BUN/Creat Ratio 14.54 Ratio (12.00-20.00); Blood Urea Nitrogen 18.9 mg/dL (9.0-27.0); Calcium 8.5 mg/dL (8.7-10.3); Carbon Dioxide 23.4 mmol/L (21.6-31.8); Chloride 103 mmol/L (96-109); Globulin 2.2 g/dL (1.6-3.3); Glucose 97 mg/dL (70-110); Potassium 4.1 mmol/L (3.5-5.5); Sodium 137 mmol/L (135-145); Total Bilirubin 0.2 mg/dL (0.3-1.2); Total Protein 5.3 g/dL (6.2-8.2)
--- NOTE | 2023-09-17 08:54 | P.PN ---
Subjective Progress Note Date: 09/17/23 Continues to have left flank pain, overnight did have a temperature of 101. This morning she is afebrile, hemodynamically stable Objective - Vital Signs Vital signs: Vital Signs Temp 99.1 F 09/17/23 07:27 Pulse 93 09/17/23 07:27 Resp 14 09/17/23 07:27 BP 102/62 09/17/23 07:27 Pulse Ox 95 09/17/23 07:27 FiO2 Intake & Output 09/16/23 09/17/23 09/17/23 18:59 06:59 18:59 Weight 69.4 kg Other: Voiding Method Toilet # Voids 1 - Constitutional General appearance: Present: no acute distress - Gastrointestinal General gastrointestinal: Present: soft, tenderness (Left flank) - Psychiatric Psychiatric: Present: A&O x's 3 - Labs CBC & Chem 7: 09/17/23 04:59 09/15/23 21:56 Labs: Abnormal Lab Results - Last 24 Hours (Table) 09/17/23 Range/Units 04:59 WBC 12.74 H (4.50-10.00) X 10*3/uL RBC 3.31 L (4.10-5.20) X 10*6/uL Hgb 10.2 L (12.0-15.0) g/dL Hct 32.1 L (37.2-46.3) % MCHC 31.8 L (32.0-37.0) g/dL MPV 12.3 H (9.5-12.2) FL Immature Gran # 0.09 H (0.00-0.04) X 10*3/uL Neutrophils # 9.74 H (1.80-7.70) X 10*3/uL Monocytes # 1.09 H (0.20-1.00) X 10*3/uL Eosinophils # 0.01 L (0.04-0.35) X 10*3/uL Assessment and Plan Assessment: 67-year-old female with history of a 1 cm left-sided proximal ureteral stone, patient did have a temperature of 101, urinalysis on presentation was consistent with a UTI. Discussed with her given the obstructive stone, the UTI and the fever I do recommend proceeding with a stent insertion. Discussed this would allow for decompression of the collecting system. Discussed she will eventually require left-sided ureteroscopy with holmium laser and stent removal as an outpatient once her UTI resolves -Keep n.p.o. -OR for cystoscopy and left-sided stent insertion
[2023-09-17] MEDS: ALPRAZolam 0.25 MG TAB PO PRN (11:28)
--- NOTE | 2023-09-17 13:01 | P.PN ---
Subjective Progress Note Date: 09/17/23 Subjective Patient seen and examined at bedside. Spiked a low-grade fever last night. Patient now at 99.1. Vitals stable. Was seen by urologist this morning. Due to the fever last night the urologist wants to do a cystoscopy and left-sided stent insertion today. Pertinent positives and negatives as discussed above, a complete review of systems was performed and all other systems are negative. Vitals: Signs Reviewed Physical Exam: General: nontoxic, no distress, appears at stated age Derm warm, dry, intact Head: atraumatic, normocephalic, symmetric Eyes: EOMI, no lid lag, anicteric sclera Mouth: no lip lesion, mucus membranes moist Cardiovascular: S1 S2 reg, no murmur, rubs, or gallops Lungs: CTA bilateral, no rhonchi, no rales, no accessory muscle use Abdominal: soft, non-tender to palpataion, no appreciable organomegaly Extremities: no gross muscle atrophy, no edema, no contractures Back: positive for left-sided CVA tenderness Neuro: Alert, Oriented, CNII-XII grossly intact, gait normal Psych: well appearing, appropriate affect Data Received Today: Pertinent Labs: WBC 12.74, Hgb 10.2, Est GFR 45, Cr 1.3; urine culture: positive for gm negative bacilli; blood culture pending Imaging: no new imaging Assessment and Plan: Left obstructing nephrolithiasis Moderate hydronephrosis of left kidney CT abdomen/pelvis displayed a 10 x 9 mm stone obstructing the left uteropelvic junction with moderate hydronephrosis of the left kidney Pain management with acetaminophen 650 mg PO every 6 hours as needed. Will consider using NSAID if she is not able to tolerate Tylenol. Dilaudid 0.5 mg IVP q3hr prn if any other pain management is not adequate. NPO diet Fluid management with LR at 75 mls/hr Urologist consulted. Note reviewed. Was concerned about fever overnight. Wants to do cystoscopy and left-sided stent insertion. Surgery scheudled for today. Acute pyelonephritis secondary to nephrolithiasis left kidney with perinephric stranding on CT abd/pelvis d/t renal stone in left UPJ increased to 2gm IV ceftriaxone elevated WBC Urine and blood cultures pending Follow-up with CBC and CMP Hyponatremia, mild - resolved CYNTHIA, likely prerenal patient is now euvolemic Continue on fluid management with LR at 75 mls/hr Monitor with CMP Atrial fibrillation, chronic takes metoprolol and flecainide prn for A-fib. Hold home meds until reconciled. Patient is not on anticoagulation Hyperglycemia, likely stress related Monitor with CMP Anxiety, stress related Patient anxious about upcoming procedure 0.25 Xanax ordered F: lactated Ringer's at 75 mls/hr E: replete as needed N: NPO A: fall precautions DVT ppx: subcu Heparin Code status: FULL Anticipated discharge place: Pending clinical course Anticipated discharge time: Pending clinical course I have seen and evaluated the patient today. Discussed with the resident and agree with the residents finding and plan as documented in the resident's note. Patient was seen and examined. Complains of anxiety. Plans for stent insertion today with Urology. Sepsis due to pyelonephritis secondary to nephrolithiasis: Change Rocephin to 2g IV QD. Pain management with Dilaudid 0.5 mg IV Q3H PRN. LR at 75 cc/hr. Add telemetry monitoring. Follow Urine and Blood culture. Urology on board. Left obstructing nephrolithiasis Moderate hydronephrosis of left kidney: Plans for stent insertion today with Urology. Anxiety: Xanax 0.25 mg PO BID PRN. Objective - Vital Signs Vital signs: Vital Signs Temp 99.1 F 09/17/23 07:27 Pulse 93 09/17/23 07:27 Resp 14 09/17/23 07:27 BP 102/62 09/17/23 07:27 Pulse Ox 95 09/17/23 07:27 FiO2 Intake & Output 09/16/23 09/17/23 09/17/23 18:59 06:59 18:59 Weight 69.4 kg Other: Voiding Method Toilet # Voids 1 - Labs CBC & Chem 7: 09/17/23 04:59 09/17/23 04:59 Labs: Abnormal Lab Results - Last 24 Hours (Table) 09/17/23 09/17/23 Range/Units 04:59 04:59 WBC 12.74 H (4.50-10.00) X 10*3/uL RBC 3.31 L (4.10-5.20) X 10*6/uL Hgb 10.2 L (12.0-15.0) g/dL Hct 32.1 L (37.2-46.3) % MCHC 31.8 L (32.0-37.0) g/dL MPV 12.3 H (9.5-12.2) FL Immature Gran # 0.09 H (0.00-0.04) X 10*3/uL Neutrophils # 9.74 H (1.80-7.70) X 10*3/uL Monocytes # 1.09 H (0.20-1.00) X 10*3/uL Eosinophils # 0.01 L (0.04-0.35) X 10*3/uL Est GFR (CKD-EPI) 45 L (>=60) Calcium 8.5 L (8.7-10.3) mg/dL Total Bilirubin 0.2 L (0.3-1.2) mg/dL Total Protein 5.3 L (6.2-8.2) g/dL Albumin 3.1 L (3.8-4.9) g/dL Albumin/Globulin Ratio 1.41 L (1.60-3.17) Ratio
[2023-09-17] MEDS: IV FLUID CONTINUATION 1,000 ML IV ONE ×3 (14:27→17:15)
[2023-09-17] MEDS: ONDANSETRON 4 MG/2 ML VIAL IVP PRN (14:32)
[2023-09-17] MEDS ORDERED: PHENYLEPHRINE-0.9% NACL SYG 1,000 MCG/10 ML SYRINGE ONE (15:22)
[2023-09-17] MEDS ORDERED: PROPOFOL 10 MG/ML 20 ML VIAL IV ONE (15:22)
[2023-09-17] MEDS ORDERED: LIDOCAINE 1% INJ 10MG/ML (20 ML MDV) ONE (15:22)
[2023-09-17] MEDS ORDERED: MIDAZOLAM 2 MG/2 ML VIAL ONE (15:22)
[2023-09-17] MEDS ORDERED: fentaNYL (PF) 50 MCG/ML 2 ML AMP ONE (15:22)
[2023-09-17] MEDS: IOPAMIDOL-370 100ML BTL MISCELLANE ONE (15:52)
[2023-09-17 15:54] VITALS: BMI 27.1
--- NOTE | 2023-09-17 16:09 | P.OP ---
Date of Procedure: 09/17/23 Preoperative Diagnosis: Left ureteral stone Postoperative Diagnosis: Same Procedure(s) Performed: Cystoscopy, left stent insertion Implants: 6 Wallisian by 24 cm stent in the left ureter Anesthesia: GREGORY Surgeon: Lorenzo Galeano Estimated Blood Loss (ml): 1 Pathology: none sent Condition: stable Disposition: PACU Indications for Procedure: 67-year-old female with history of a 1 cm left-sided proximal ureteral stone, patient did have a temperature of 101, urinalysis on presentation was consistent with a UTI. Discussed with her given the obstructive stone, the UTI and the fever I do recommend proceeding with a stent insertion. Discussed this would allow for decompression of the collecting system. Discussed she will eventually require left-sided ureteroscopy with holmium laser and stent removal as an outpatient once her UTI resolves Description of Procedure: Patient brought to the operating room, general anesthesia was induced. She was prepped and draped in sterile fashion placed in dorsolithotomy position Cystoscopy with a 21 Wallisian sheath was inserted per urethra, cystoscopy was performed showed no abnormality within the bladder. The left ureteral orifice was visualized and intubated with a sensor wire, the wire was advanced up the left ureter at this point I encountered a impacted radioopaue stone. At this point I switched to a Glidewire I was able to navigate the Glidewire across the stone and into the left kidney. A 6 Wallisian open-ended catheter was passed over the wire and into the kidney, at this point purulent urine was encountered which was drained and sent for culture. A gentle retrograde pyelogram was performed to better define the collecting system. At this point the sensor wire was advanced through the catheter and the catheter was removed with the wire in place. Next a ureteral stent was passed over the wire, the proximal curl was visualized on fluoroscopy and the distal curl was visualized using the cystoscope. Purulent urine drained from the collecting system. Patient kamilah ated procedure was taken to recovery in stable condition
--- NOTE | 2023-09-17 16:31 | FL ---
EXAMINATION TYPE: FL urography retrograde Intraoperative/procedural fluoroscopic services were provid ed. Total fluoroscopy time is 7 seconds with a total of 6 submitted images to PACS. Please see the op erative/procedural note for further details. DAP: 57.739 mGym2 Gycm2 uGym2 cGycm2
[2023-09-17] MEDS: GENTAMICIN 120 MG in SODIUM CHLORIDE 0.9% 100 ML IVPB STA (17:47)
[2023-09-18 08:20] LABS: MCH 30.1 pg (25.0-35.0); MCHC 30.5 g/dL (31.0-37.0); MCV 98.6 fL (80.0-100.0); Mean Platelet Volume 10.1; Platelet Count 189 k/uL (150-450); RBC 3.24 m/uL (3.80-5.40); RDW 14.5 % (11.5-15.5); WBC 6.9 k/uL (3.8-10.6)
[2023-09-18 08:24] LABS: HGB 9.8 gm/dL (11.4-16.0)
[2023-09-18 08:25] LABS: African American GFR (CKD) 66 (>60 ml/min/1.73 sqM); Anion Gap 1 mmol/L; Blood Urea Nitrogen 14 mg/dL (7-17); Calcium 8.8 mg/dL (8.4-10.2); Carbon Dioxide 29 mmol/L (22-30); Chloride 108 mmol/L (98-107); Glucose 89 mg/dL (74-99); Non-African American GFR(CKD) 57 (>60 ml/min/1.73 sqM); Potassium 3.8 mmol/L (3.5-5.1); Sodium 138 mmol/L (137-145)
--- NOTE | 2023-09-18 08:40 | P.PN ---
Subjective Underwent left-sided stent insertion yesterday, indicates left flank pain has improved. Denies any dysuria urine cultures growing gram-negative bacilli Objective - Vital Signs Vital signs: Vital Signs Temp 97.3 F L 09/18/23 07:49 Pulse 74 09/18/23 07:49 Resp 17 09/18/23 07:49 BP 113/77 09/18/23 07:49 Pulse Ox 98 09/18/23 07:49 FiO2 Intake & Output 09/17/23 09/18/23 09/18/23 18:59 06:59 18:59 Intake Total 1800 Output Total 5 Balance 1795 Weight 69.4 kg Intake: IV 1800 Output: Estimated Blood Loss 5 Other: Voiding Method Toilet Toilet # Voids 4 2 - Constitutional General appearance: Present: no acute distress - Gastrointestinal General gastrointestinal: Present: soft. Absent: distended, tenderness - Labs CBC & Chem 7: 09/18/23 07:52 09/18/23 07:52 Labs: Abnormal Lab Results - Last 24 Hours (Table) 09/17/23 09/17/23 09/18/23 Range/Units 04:59 04:59 07:52 WBC 12.74 H (4.50-10.00) X 10*3/uL RBC 3.31 L (4.10-5.20) X 10*6/uL Hgb 10.2 L (12.0-15.0) g/dL Hct 32.1 L (37.2-46.3) % MCHC 31.8 L (32.0-37.0) g/dL MPV 12.3 H (9.5-12.2) FL Immature Gran # 0.09 H (0.00-0.04) X 10*3/uL Neutrophils # 9.74 H (1.80-7.70) X 10*3/uL Monocytes # 1.09 H (0.20-1.00) X 10*3/uL Eosinophils # 0.01 L (0.04-0.35) X 10*3/uL Chloride 108 H (98-107) mmol/L Est GFR (CKD-EPI) 45 L (>=60) Calcium 8.5 L (8.7-10.3) mg/dL Total Bilirubin 0.2 L (0.3-1.2) mg/dL Total Protein 5.3 L (6.2-8.2) g/dL Albumin 3.1 L (3.8-4.9) g/dL Albumin/Globulin Ratio 1.41 L (1.60-3.17) Ratio 09/18/23 Range/Units 07:52 WBC (4.50-10.00) X 10*3/uL RBC 3.24 L (4.10-5.20) X 10*6/uL Hgb 9.8 L D (12.0-15.0) g/dL Hct 32.0 L (37.2-46.3) % MCHC 30.5 L (32.0-37.0) g/dL MPV (9.5-12.2) FL Immature Gran # (0.00-0.04) X 10*3/uL Neutrophils # (1.80-7.70) X 10*3/uL Monocytes # (0.20-1.00) X 10*3/uL Eosinophils # (0.04-0.35) X 10*3/uL Chloride (98-107) mmol/L Est GFR (CKD-EPI) (>=60) Calcium (8.7-10.3) mg/dL Total Bilirubin (0.3-1.2) mg/dL Total Protein (6.2-8.2) g/dL Albumin (3.8-4.9) g/dL Albumin/Globulin Ratio (1.60-3.17) Ratio Microbiology - Last 24 Hours (Table) 09/16/23 01:00 Blood Culture - Preliminary Blood 09/16/23 00:45 Blood Culture - Preliminary Blood 09/15/23 21:08 Urine Culture - Preliminary Urine,Clean Catch Gram Neg Bacilli Assessment and Plan Assessment: 67-year-old female with history of a 1 cm left-sided proximal ureteral stone, underwent left-sided stent insertion yesterday today, did have a fever of 101.5. Urine cultures growing gram-negative bacilli. Of note upon inserting the stent purulent urine drained from the collecting system -From urology standpoint she can be discharged when she is afebrile for 24 hours and the urine cultures finalized. She will need 2 weeks of antibiotics. -Will arrange for outpatient left-sided ureteroscopy with holmium laser in 3 to 4 weeks
--- NOTE | 2023-09-18 08:56 | P.PN ---
Subjective Progress Note Date: 09/18/23 Subjective: Patient seen and examined at bedside. post op day 1 s/p stent insertion. Spiked a low-grade fever last night 100.5 F. She says she feels much better after the surgery. Only in moderate pain at the surgical site. Pertinent positives and negatives as discussed above, a complete review of systems was performed and all other systems are negative. Vitals: Signs Reviewed Physical Exam: General: nontoxic, no distress, appears at stated age Derm: warm, dry, intact Head: atraumatic, normocephalic, symmetric Eyes: EOMI, no lid lag, anicteric sclera Mouth: no lip lesion, mucus membranes moist Cardiovascular: S1 S2 reg, no murmur, rubs, or gallops Lungs: CTA bilateral, no rhonchi, no rales, no accessory muscle use Abdominal: soft, non-tender to palpataion, no appreciable organomegaly Extremities: no gross muscle atrophy, no edema, no contractures Back: positive for left-sided CVA tenderness at surgical sight Neuro: Alert, Oriented, CNII-XII grossly intact, gait normal Psych: well appearing, appropriate affect Data Received Today: Pertinent Labs: WBC 6.9, Hgb 9.8, Est ; urine culture: blood cultures: no growth after 48 hours Imaging: no new imaging Assessment and Plan: Left obstructing nephrolithiasis Moderate hydronephrosis of left kidney CT abdomen/pelvis displayed a 10 x 9 mm stone obstructing the left uteropelvic junction with moderate hydronephrosis of the left kidney Pain management with acetaminophen 650 mg PO every 6 hours as needed. Will consider using NSAID if she is not able to tolerate Tylenol. Dilaudid 0.5 mg IVP q3hr prn if any other pain management is not adequate. Fluid management with LR at 75 mls/hr Status post stent insertion. Patient symptoms have improved and feels more relieved Urology following. Will follow-up with urology as outpatient. Status post stent insertion. Patient symptoms have improved and feels more relieved Advance to regular diet Pain management with Dilaudid 0.5 mg IV every 3 hours as needed. Acute pyelonephritis secondary to nephrolithiasis left kidney with perinephric stranding on CT abd/pelvis d/t renal stone in left UPJ increased to 2gm IV ceftriaxone elevated WBC Urine cultures gram negative bacilli Blood cultures: No growth after 48 hours Follow-up with CBC and CMP last night had fever of 100.5 F - will monitor to see if she is afebrile for 24 hours White blood count within normal limits Will follow-up on cultures Hyponatremia, mild - resolved CYNTHIA, likely prerenal patient is now euvolemic Continue on fluid management with LR at 75 mls/hr Monitor with CMP Atrial fibrillation, chronic takes metoprolol and flecainide prn for A-fib. Hold home meds until reconciled. Patient is not on anticoagulation Hyperglycemia, likely stress related Monitor with CMP Anxiety, stress related Patient anxious about upcoming procedure 0.25 Xanax ordered F: lactated Ringer's at 75 mls/hr E: replete as needed N: normal diet A: fall precautions DVT ppx: subcu Heparin Code status: FULL Anticipated discharge place: Pending clinical course Anticipated discharge time: Pending clinical course I have seen and evaluated the patient today. Discussed with the resident and agree with the residents finding and plan as documented in the resident's note. Patient was seen and examined this morning. Stent insertion yesterday. Pain much better. Still having low grade fever. UCx GNB. Urology recommends discharge home with outpatient follow up once afebrile for 24H and results of UCx are back. Sepsis due to pyelonephritis secondary to nephrolithiasis: Rocephin to 2g IV QD. Pain management with Dilaudid 0.5 mg IV Q3H PRN. LR at 75 cc/hr. Add telemetry monitoring. UCx GNB. BCx negative. Urology on board. Left obstructing nephrolithiasis Moderate hydronephrosis of left kidney: Status post stent insertion with Urology. Anxiety: Xanax 0.25 mg PO BID PRN. Objective - Vital Signs Vital signs: Vital Signs Temp 97.3 F L 09/18/23 07:49 Pulse 74 09/18/23 07:49 Resp 17 09/18/23 07:49 BP 113/77 09/18/23 07:49 Pulse Ox 98 09/18/23 07:49 FiO2 Intake & Output 09/17/23 09/18/23 09/18/23 18:59 06:59 18:59 Intake Total 1800 Output Total 5 Balance 1795 Weight 69.4 kg Intake: IV 1800 Output: Estimated Blood Loss 5 Other: Voiding Method Toilet Toilet # Voids 4 2 - Labs CBC & Chem 7: 09/18/23 07:52 09/18/23 07:52 Labs: Abnormal Lab Results - Last 24 Hours (Table) 09/18/23 09/18/23 Range/Units 07:52 07:52 RBC 3.24 L (3.80-5.40) m/uL Hgb 9.8 L D (11.4-16.0) gm/dL Hct 32.0 L (34.0-46.0) % MCHC 30.5 L (31.0-37.0) g/dL Chloride 108 H (98-107) mmol/L Microbiology - Last 24 Hours (Table) 09/16/23 01:00 Blood Culture - Preliminary Blood 09/16/23 00:45 Blood Culture - Preliminary Blood 09/15/23 21:08 Urine Culture - Preliminary Urine,Clean Catch Gram Neg Bacilli
[2023-09-19 07:34] VITALS: BP 137/78; PULSE 85; RESP 18; TEMP 97.5
--- NOTE | 2023-09-19 07:41 | P.PN ---
Subjective Progress Note Date: 09/19/23 Subjective Patient seen and examined at bedside. post op day 1 s/p stent insertion. She is afebrile. She says she feels much better after the surgery. Only in moderate pain at the surgical site. Pertinent positives and negatives as discussed above, a complete review of carlos cardona was performed and all other systems are negative. Vitals: Signs Reviewed Physical Exam: General: nontoxic, no distress, appears at stated age Derm: warm, dry, intact Head: atraumatic, normocephalic, symmetric Eyes: EOMI, no lid lag, anicteric sclera Mouth: no lip lesion, mucus membranes moist Cardiovascular: S1 S2 reg, no murmur, rubs, or gallops Lungs: CTA bilateral, no rhonchi, no rales, no accessory muscle use Abdominal: soft, non-tender to palpataion, no appreciable organomegaly Extremities: no gross muscle atrophy, no edema, no contractures Back: positive for left-sided CVA tenderness at surgical sight Neuro: Alert, Oriented, CNII-XII grossly intact, gait normal Psych: well appearing, appropriate affect Data Received Today: Pertinent Labs: WBC 6.9, Hgb 9.8, Est ; urine culture: blood cultures: no growth after 48 hours Imaging: no new imaging Assessment and Plan: Left obstructing nephrolithiasis Moderate hydronephrosis of left kidney CT abdomen/pelvis displayed a 10 x 9 mm stone obstructing the left uteropelvic junction with moderate hydronephrosis of the left kidney Pain management with acetaminophen 650 mg PO every 6 hours as needed. Will consider using NSAID if she is not able to tolerate Tylenol. Dilaudid 0.5 mg IVP q3hr prn if any other pain management is not adequate. Fluid management with LR at 75 mls/hr Status post stent insertion. Patient symptoms have improved and feels more relieved Urology following. Will follow-up with urology as outpatient. Status post stent insertion. Patient symptoms have improved and feels more relieved Advance to regular diet Pain management with Dilaudid 0.5 mg IV every 3 hours as needed. Acute pyelonephritis secondary to nephrolithiasis left kidney with perinephric stranding on CT abd/pelvis d/t renal stone in left UPJ increased to 2gm IV ceftriaxone elevated WBC Urine cultures gram negative bacilli Blood cultures: No growth after 48 hours Follow-up with CBC and CMP last night had fever of 100.5 F - will monitor to see if she is afebrile for 24 hours White blood count within normal limits Will follow-up on cultures Hyponatremia, mild - resolved CYNTHIA, likely prerenal patient is now euvolemic Continue on fluid management with LR at 75 mls/hr Monitor with CMP Atrial fibrillation, chronic takes metoprolol and flecainide prn for A-fib. Hold home meds until reconciled. Patient is not on anticoagulation Hyperglycemia, likely stress related Monitor with CMP Anxiety, stress related Patient anxious about upcoming procedure 0.25 Xanax ordered F: lactated Ringer's at 75 mls/hr E: replete as needed N: normal diet A: fall precautions DVT ppx: subcu Heparin Code status: FULL Anticipated discharge place: Pending clinical course Anticipated discharge time: Pending clinical course I have seen and evaluated the patient today. Discussed with the resident and agree with the residents finding and plan as documented in the resident's note. Patient was seen and examined this morning. Stent insertion yesterday. Pain much better. Still having low grade fever. UCx GNB. Urology recommends discharge home with outpatient follow up once afebrile for 24H and results of UCx are back. Sepsis due to pyelonephritis secondary to nephrolithiasis: Rocephin to 2g IV QD. Pain management with Dilaudid 0.5 mg IV Q3H PRN. LR at 75 cc/hr. Add telemetry monitoring. UCx GNB. BCx negative. Urology on board. Left obstructing nephrolithiasis Moderate hydronephrosis of left kidney: Status post stent insertion with Urology. Anxiety: Xanax 0.25 mg PO BID PRN. Objective - Vital Signs Vital signs: Vital Signs Temp 98.2 F 09/19/23 01:29 Pulse 75 09/19/23 01:29 Resp 17 09/19/23 01:29 BP 126/74 09/19/23 01:29 Pulse Ox 91 L 09/19/23 01:29 FiO2 Intake & Output 09/18/23 09/18/23 09/19/23 06:59 18:59 06:59 Other: Voiding Method Toilet Toilet Toilet # Voids 2 4 2 # Bowel Movements 1 - Labs CBC & Chem 7: 09/18/23 07:52 09/18/23 07:52 Labs: Abnormal Lab Results - Last 24 Hours (Table) 09/18/23 09/18/23 Range/Units 07:52 07:52 RBC 3.24 L (3.80-5.40) m/uL Hgb 9.8 L D (11.4-16.0) gm/dL Hct 32.0 L (34.0-46.0) % MCHC 30.5 L (31.0-37.0) g/dL Chloride 108 H (98-107) mmol/L Microbiology - Last 24 Hours (Table) 09/16/23 01:00 Blood Culture - Preliminary Blood 09/16/23 00:45 Blood Culture - Preliminary Blood 09/15/23 21:08 Urine Culture - Final Urine,Clean Catch Escherichia coli 09/17/23 16:00 Gram Stain - Preliminary Aspirate
[2023-09-19 08:38] LABS: Basophils % (A) 0 %; Eosinophils # (A) 0.2 k/uL (0-0.7); Eosinophils % (A) 4 %; HCT 30.9 % (34.0-46.0); HGB 9.5 gm/dL (11.4-16.0); Lymphocytes # (A) 1.4 k/uL (1.0-4.8); Lymphocytes % (A) 27 %; MCHC 30.7 g/dL (31.0-37.0); MCV 97.8 fL (80.0-100.0); Monocytes # (A) 0.5 k/uL (0-1.0); Monocytes % (A) 9 %; Neutrophils # (A) 2.9 k/uL (1.3-7.7); Neutrophils % (A) 58 %; Platelet Count 216 k/uL (150-450); RBC 3.16 m/uL (3.80-5.40); RDW 14.2 % (11.5-15.5); WBC 5.1 k/uL (3.8-10.6)
[2023-09-19 08:49] LABS: ALT 20 U/L (4-34); AST 22 U/L (14-36); African American GFR (CKD) >90 (>60 ml/min/1.73 sqM); Albumin 2.9 g/dL (3.5-5.0); Albumin/Globulin Ratio 1.2; Alkaline Phosphatase 117 U/L (38-126); Anion Gap 4 mmol/L; Blood Urea Nitrogen 13 mg/dL (7-17); Calcium 8.9 mg/dL (8.4-10.2); Carbon Dioxide 25 mmol/L (22-30); Chloride 110 mmol/L (98-107); Globulin 2.5 g/dL; Glucose 83 mg/dL (74-99); Non-African American GFR(CKD) 89 (>60 ml/min/1.73 sqM); Potassium 3.7 mmol/L (3.5-5.1); Sodium 139 mmol/L (137-145); Total Bilirubin 0.2 mg/dL (0.2-1.3); Total Protein 5.4 g/dL (6.3-8.2)
--- NOTE | 2023-09-19 10:18 | P.DS ---
Providers Date of admission: 09/16/23 06:04 Discharge Diagnosis: Left obstructing nephrolithiasis Acute pyelonephritis secondary to nephrolithiasis Hyponatremia, mild Atrial fibrillation, chronic Hyperglycemia, likely stress related Anxiety, stress related Hospital Course: Patient is a 67-year-old female with past medical history of atrial fibrillation and anxiety presents to the ED with back pain on the left side flank. She describes it as a constant colicky pain that has gotten worse over the days. Pain radiates to the left groin and under the umbilicus. States the pain was 8 out of 10 at its worst. She denies any dysuria, hematuria, difficulty voiding, nausea, vomiting, constipation. She admits to having an increase in urinary frequency and urgency and says she was at one point she was going to the restroom at least once every 2 hours. Says that ibuprofen only worked tem porarily. She states her brother has a history of kidney stones. Denies any history of tobacco use, alcohol, drugs. In the ED her vitals were stable with a blood pressure of 126/70, pulse 86, respiratory rate 18, temp of 98.2 F, O2 98. Urinalysis showed elevated white blood count 182, positive nitrates, positive leukocyte esterase. CBC showed a leukocytosis with positive neural neutrophils, no left shift. CT abdomen/pelvis displayed a 10 x 9 mm stone obstructing the left uteropelvic junction with moderate hydronephrosis of the left kidney with perinephric stranding. Patient was started on IV antibiotic due to elevated white blood count and urine cultures revealing gram-negative bacilli -E. coli. Patient was seen by urologist, and was admitted for further urological workup. Initially started on conservative management; however during her stay, she spiked a fever overnight of 100.5. Urology was consulted and decided to go forward with cystoscopy with left stent insertion. Status post left stent insertion patient felt significant relief. She was sent home with home an oral antibiotic in order to complete her hospital course antibiotic. She was also sent with Tylenol and was told to come back if fevers persist despite Tylenol use. She will follow-up with PCP, and urologist in the future. She is to be discharged home. Today's events: Patient was observed at bedside. No acute overnight events. Vital signs reviewed and stable. Physical Exam: General non-toxic, no distress, appears appropriate age Derm: warm, dry Head: atruamatic, normocephalic, symmetric Eyes: EMOI, no lid lag Mouth: no lip lesion, mucus membranes moist Cardiovascular: S1S2 reg, no murmur Lungs: CTA bilateral, no rhonchi, no rales, no accessory muscle use Abdominal: soft, nontender to palpation, no guarding, no appreciable organomegaly Ext: no gross muscle atrophy, no edema, no contractures Back: Left-sided costovertebral angle tenderness Neuro: CN II-XI grossly intact, no focal neuro deficits Psych: alert, oriented, appropriate affect A total of [] minutes of time were spent preparing this complex discharge summary. Patient was discharge on [] Expected date of discharge: 09/19/23 Attending physician: Naya Brady MD Consults: 09/16/23 06:04 Consult Physician Routine Consulting Provider: Cecilio Johnson Consult Reason/Comments: obstructing renal calculi, UTI Do you want consulting provider notified?: Already Contacted Primary care physician: [facility] Hospital Course: I have seen and evaluated the patient today. Discussed with the resident and a gree with the residents subjective and objective. We discussed the assessment and plan as below. Patient was seen and examined this morning. Afebrile over the past 24H. Feeling much better. Plans for discharge home on Omnicef x 6 days (total 10 days antibiotics). Follow up with PCP within 1-[address] Galeano within 1 week of discharge for left-sided ureteroscopy with holmium laser in 3 to 4 weeks. Discharge Diagnosis: Sepsis due to pyelonephritis secondary to nephrolithiasis Left obstructing nephrolithiasis Moderate hydronephrosis of left kidney: Status post stent insertion with Urology . Anxiety This complex discharge took 35 minutes to complete. Patient Condition at Discharge: Stable Plan - Discharge Summary Discharge Rx Participant: Yes New Discharge Prescriptions: New Cefdinir [Omnicef] 300 mg PO Q12HR #12 capsule Acetaminophen Tab [Tylenol] 650 mg PO Q6HR PRN tab PRN Reason: Mild Pain Or Fever > 100.5 Discharge Medication List Acetaminophen Tab [Tylenol] 650 mg PO Q6HR PRN tab 09/19/23 [Rx] Cefdinir [Omnicef] 300 mg PO Q12HR #12 capsule 09/19/23 [Rx] Follow up Appointment(s)/Referral(s): Lorenzo Galeano MD [STAFF PHYSICIAN] - 1 Week (Office will call patient with date and time. ) [facility]Clinic [Primary Care Provider] - 1-2 days (Ananda needs to call to set up appointment. ) Patient Instructions/Handouts: Urethral Stent Placement (DC) Activity/Diet/Wound Care/Special Instructions: come back to ED if fever not relieved by Tylenol. Discharge Disposition: HOME SELF-CARE
== END 2023-09-19 12:27 | disposition home or self-care (01) | DRG 659 ==
LOC: EC 20:56 → 4SSUR 09-16 06:04
PROVIDERS: ADMIT Internal Medicine; ATTEND Internal Medicine
PROC: 0T778DZ Dilation of Left Ureter with Intraluminal Device, Via Natural or Artificial Opening Endoscopic (ICD-10-PCS; principal; 2023-09-17 12:00)
DX: N13.6 Pyonephrosis (principal); A41.9 Sepsis, unspecified organism; N20.2 Calculus of kidney with calculus of ureter; I48.20 Chronic atrial fibrillation, unspecified; E87.1 Hypo-osmolality and hyponatremia; I48.91 Unspecified atrial fibrillation; F41.9 Anxiety disorder, unspecified; N17.9 Acute kidney failure, unspecified; R73.9 Hyperglycemia, unspecified; Z88.5 Allergy status to narcotic agent; Z91.040 Latex allergy status; Z28.310 Unvaccinated for COVID-19
CPT/HCPCS: 36415; 74176; 74420; 80048; 80053; 81001; 83605; 85025; 85027; 87040; 87070; 87075; 87077; 87086; 87186; 87205; 96361; 96374; 96375; 96376; 99285

== ENCOUNTER → 2023-10-01 | Outpatient (CLI) | payer MEDICARE, OTHER ==
[2023-10-01 15:10] LABS: Basophils # (A) 0.06 X 10*3/uL (0.00-0.10); Basophils % (A) 0.8 %; Eosinophils # (A) 0.12 X 10*3/uL (0.04-0.35); Eosinophils % (A) 1.6 %; HCT 38.1 % (37.2-46.3); HGB 11.8 g/dL (12.0-15.0); Lymphocytes # (A) 2.19 X 10*3/uL (0.90-5.00); Lymphocytes % (A) 28.6 %; MCH 30.8 pg (27.0-32.0); MCV 99.5 FL (80.0-97.0); Mean Platelet Volume 11.4 FL (9.5-12.2); Monocytes # (A) 0.54 X 10*3/uL (0.20-1.00); Monocytes % (A) 7.1 %; NRBC Per 100 WBC 0 X 10*3/uL (0.00-0.01); Neutrophils # (A) 4.73 X 10*3/uL (1.80-7.70); Neutrophils % (A) 61.8 %; Platelet Count 434 X 10*3/uL (140-440); RBC 3.83 X 10*6/uL (4.10-5.20); RDW 14.6 % (11.5-14.5); WBC 7.65 X 10*3/uL (4.50-10.00)
[2023-10-01 15:25] LABS: Appearance,Urine Cloudy (Clear); Bilirubin,Urine Negative (Negative); Blood,Urine Moderate (Negative); Color,Urine Yellow (Yellow); Ketones,Urine Negative (Negative); Nitrite,Urine Negative (Negative); PH, Urine 7.5; Specific Gravity,Urine 1.013 (1.001-1.030); Urobilinogen,Urine 0.2 E.U./DL
[2023-10-01 15:49] LABS: Bacteria,Urine Trace (None Seen)
[2023-10-01 16:49] LABS: BUN/Creat Ratio 23.67 Ratio (12.00-20.00); Blood Urea Nitrogen 21.3 mg/dL (9.0-27.0); Carbon Dioxide 28.3 mmol/L (21.6-31.8); Chloride 102 mmol/L (96-109); Glucose 86 mg/dL (70-110); Potassium 4.6 mmol/L (3.5-5.5); Sodium 140 mmol/L (135-145)
== END | disposition home or self-care (01) ==
LOC: LABPAT 11:22
PROVIDERS: ATTEND Urology
DX: Z01.812 Encounter for preprocedural laboratory examination (principal); N20.1 Calculus of ureter
CPT/HCPCS: 80048; 81001; 85025; 87086

== ENCOUNTER 2023-10-08 09:26 | Day surgery (SDC) | payer MEDICARE, OTHER ==
[~2023-10-08 09:26] MED LIST: ONDANSETRON 4 MG/2 ML VIAL IVP ONE; fentaNYL (PF) 50 MCG/ML 2 ML AMP IV PRN
--- NOTE | 2023-10-08 09:48 | XR ---
EXAMINATION TYPE: XR KUB DATE OF EXAM: 10/08/2023 9:41 AM CLINICAL INDICATION:Female, 67 years old with history of renal calculi; [facility] COMPARISON: 09/16/2023 CT TECHNIQUE: One radiographic view of the abdomen was obtained. FINDINGS: The bowel gas pattern is nonspecific without dilated loops of small or large bowel. . Fecal material and gas are demonstrated throughout the colon and rectum. There is no evidence for organomegaly or pneumoperitoneum. The osseous structures are intact. Left ureteral stent with superior and inferior pigtails in appropriate position. Left renal 13 mm calculus . IMPRESSION: 1. Left ureteral stent in appropriate position. 2. Left renal calculus measuring 13 mm appears to be in the inferior calyx now not in the renal pelv is. 3. Nonspecific bowel gas pattern without radiographic evidence for acute process.
[2023-10-08] MEDS: LACTATED RINGERS 1,000 ML IV SCH (10:01)
[2023-10-08] MEDS: DEXAMETHASONE SOD PHOSPHATE 4 MG/ML 1 ML VIAL IV ONE (10:02)
[2023-10-08] MEDS: MIDAZOLAM 2 MG/2 ML VIAL IV PRN (10:09)
[2023-10-08] MEDS: IV FLUID CONTINUATION 1,000 ML IV ONE (10:12)
--- NOTE | 2023-10-08 10:54 | P.HPIHPCON ---
History of Present Illness H&P Date: 10/08/23 Chief Complaint: Left ureteral stone This is a 67-year-old female with history of a 1 cm left-sided UPJ stone, status post stent insertion on September 16 for a septic stone. Presents today for definitive stone management. Option of left-sided ureteroscopy with holmium laser and stent removal was discussed. Aware the risk which includes but not limited to bleeding, infection, injury to the ureter Consent for Procedure: I have explained the operation/procedure to the patient, including the risks, benefits, side effects, alternative therapies (including not receiving the proposed treatment or service), the likelihood of the patient achieving his/her goals, and potential recuperation problems for the procedure/sedation/analgesia, as well as any blood products, if indicated. I also explained to the patient the risks, benefits and side effects of the alternatives, as well as the risks related to not receiving the proposed procedure, care, treatment, or services. Past Medical History Past Medical History: Atrial Fibrillation Additional Past Medical History / Comment(s): PATIENT STARTED HAVING ARM PAIN ESPECIALLY LEFT AND HER CHIROPRACTER TOOK BACK XRAYS AND FOUND RENAL CALCULI. TAKING PRN MEDS FOR A-FIB ("ANXIETY, CAFFIENE CAN START A RACING HEART"). BENIGN UTERINE TUMORS FOUND ON ULTRASOUND, STOPPED HORMONE REPLACEMENT, TUMORS STILL THERE. History of Any Multi-Drug Resistant Organisms: None Reported Past Surgical History: Section Past Anesthesia/Blood Transfusion Reactions: No Reported Reaction Past Psychological History: Anxiety Smoking Status: Never smoker Past Alcohol Use History: None Reported Past Drug Use History: None Reported - Past Family History Mother Family Medical History: No Reported History Medications and Allergies Home Medications Medication Instructions Recorded Confirmed Type Acetaminophen Tab [Tylenol] 650 mg PO Q6HR PRN tab 09/19/23 10/08/23 Rx Flecainide Acetate [Tambocor] 100 mg PO BID PRN 10/04/23 10/08/23 History Metoprolol Succinate [Metoprolol 25 mg PO BID PRN 10/04/23 10/04/23 History Succinate ER] Allergies Allergy/AdvReac Type Severity Reaction Status Date / Time latex Allergy Rash/Hives Verified 10/08/23 09:48 codeine AdvReac Hallucinati Verified 10/08/23 09:48 ons Surgical - Exam Vital Signs Temp Pulse Resp BP Pulse Ox 97.5 F L 77 17 155/77 98 10/08/23 09:57 10/08/23 09:57 10/08/23 09:57 10/08/23 09:57 10/08/23 09:57 - General no distress, no pain - Eyes normal ocular movement, no pale - ENT normal nares, normal mucosa - Respiratory normal expansion, normal respiratory effort - Abdomen Abdomen: soft, non tender - Psychiatric oriented to time, oriented to person, oriented to place Assessment and Plan Assessment: OR for left-sided ureteroscopy, holmium laser lithotripsy, stone basketing and stent removal
[2023-10-08] MEDS ORDERED: LIDOCAINE 1% INJ 10MG/ML (20 ML MDV) ONE (11:16)
[2023-10-08] MEDS ORDERED: fentaNYL (PF) 50 MCG/ML 2 ML AMP ONE (11:16)
[2023-10-08] MEDS ORDERED: ePHEDrine 50 MG/ML 1 ML VIAL ONE (11:16)
[2023-10-08] MEDS ORDERED: PROPOFOL 10 MG/ML 20 ML VIAL IV ONE (11:16)
--- NOTE | 2023-10-08 12:25 | P.OP ---
Date of Procedure: 10/08/23 Preoperative Diagnosis: Left renal stone Postoperative Diagnosis: Same Procedure(s) Performed: Cystoscopy, left ureteroscopy, holmium laser lithotripsy, stone basketing and stent removal Implants: none Anesthesia: GREGORY Surgeon: Lorenzo Galeano Estimated Blood Loss (ml): 5 Pathology: other (Left ureteral stone) Condition: stable Disposition: PACU Indications for Procedure: This is a 67-year-old female with history of a 1 cm left-sided UPJ stone, status post stent insertion on September 16 for a septic stone. Presents today for definitive stone management. Option of left-sided ureteroscopy with holmium laser and stent removal was discussed. Aware the risk which includes but not limited to bleeding, infection, injury to the ureter Operative Findings: Left-sided lower pole renal stone Description of Procedure: Patient brought the operating room, general anesthesia was induced. She was prepped and draped in sterile fashion and placed in dorsolithotomy position. Cystoscopy fitted with a 21 English sheath was inserted per urethra, cystoscopy was performed showed no abnormality within the bladder. Attention was then carried to the left ureteral orifice, the stent was removed to the meatus. Next a sensor wire was advanced through the stent and the stent was removed with the wire in place. Next under fluoroscopy 1113 English access sheath was passed over the wire, and into the proximal ureter. Next the flexibilie ureteroscope was inserted through the access sheath, renoscopy was performed showed a large stone in the lower pole. Using the holmium laser the stone was fragmented, siza ble stone fragments were removed using the stone basket. Repeat renoscopy showed no injury to the kidney or any sizable fragments, on fluoroscopy there was no radiopaque density seen's. Pullback ureteroscopy was performed showed no injury to the ureter or any ureteral stones. The bladder was emptied at the end of the case. Patient tolerated procedure was taken to recovery in stable condition
[2023-10-08 12:32] VITALS: TEMP 97.8
--- NOTE | 2023-10-08 12:51 | FL ---
EXAMINATION TYPE: FL guidance operating room Intraoperative/procedural fluoroscopic services were pro vided. Total fluoroscopy time is 11.2 seconds with a total of 2 submitted images to PACS. Please see the operative/procedural note for further details. DAP: [id number] [id number]
[2023-10-08 13:15] VITALS: RESP 16
[2023-10-08 13:17] VITALS: BP 145/86; PULSE 79
== END 2023-10-08 13:42 | disposition home or self-care (01) ==
LOC: OR 09:26
PROVIDERS: ATTEND Urology
DX: N20.0 Calculus of kidney (principal); Z96.0 Presence of urogenital implants; I48.91 Unspecified atrial fibrillation; Z88.5 Allergy status to narcotic agent; Z91.040 Latex allergy status; Z79.899 Other long term (current) drug therapy
CPT/HCPCS: 82365; 74018; 52353; C1769; J2250; J1100; J0690; J2001; J3010; J2704

== ENCOUNTER 2023-12-06 10:28 | Emergency (ER) | payer OTHER, MEDICARE ==
[2023-12-06 10:39] VITALS: TEMP 97.8
[2023-12-06] MEDS: KETOROLAC 15 MG/ML 1 ML VIAL IVP STA (11:48)
[2023-12-06] MEDS: SODIUM CHLORIDE 0.9% 1,000 ML IV STA (11:51)
[2023-12-06 12:01] LABS: Basophils % (A) 1 %; Eosinophils # (A) 0.1 k/uL (0-0.7); Eosinophils % (A) 1 %; HCT 40.8 % (34.0-46.0); Lymphocytes # (A) 1.8 k/uL (1.0-4.8); Lymphocytes % (A) 28 %; MCH 30.9 pg (25.0-35.0); MCHC 31.9 g/dL (31.0-37.0); MCV 96.7 fL (80.0-100.0); Mean Platelet Volume 8.9; Monocytes # (A) 0.4 k/uL (0-1.0); Monocytes % (A) 6 %; Neutrophils # (A) 4.1 k/uL (1.3-7.7); Neutrophils % (A) 64 %; Platelet Count 333 k/uL (150-450); RBC 4.22 m/uL (3.80-5.40); RDW 13.8 % (11.5-15.5); WBC 6.4 k/uL (3.8-10.6)
[2023-12-06 12:18] LABS: Appearance,Urine Clear (Clear); Bacteria,Urine Rare /hpf; Bilirubin,Urine Negative (Negative); Blood,Urine Trace (Negative); Color,Urine Colorless; Glucose,Urine (UA) Negative (Negative); Ketones,Urine Negative (Negative); Leukocyte Esterase,Urine Negative (Negative); Nitrite,Urine Negative (Negative); PH, Urine 7.5 (5.0-8.0); Protein,Urine Negative (Negative); RBC,Urine 2 /hpf (0-5); Specific Gravity,Urine 1.005 (1.001-1.035); Squamous Epithelial Cell,Urine <1 /hpf (0-4); Urobilinogen,Urine <2.0 mg/dL (<2.0); WBC,Urine 2 /hpf (0-5)
[2023-12-06 12:25] LABS: ALT 14 U/L (4-34); AST 21 U/L (14-36); African American GFR (CKD) >90 (>60 ml/min/1.73 sqM); Albumin 4.3 g/dL (3.5-5.0); Alkaline Phosphatase 130 U/L (38-126); Anion Gap 6 mmol/L; Blood Urea Nitrogen 10 mg/dL (7-17); Calcium 10.2 mg/dL (8.4-10.2); Carbon Dioxide 26 mmol/L (22-30); Chloride 107 mmol/L (98-107); Glucose 90 mg/dL (74-99); Lipase 88 U/L (23-300); Non-African American GFR(CKD) 90 (>60 ml/min/1.73 sqM); Potassium 3.9 mmol/L (3.5-5.1); Sodium 139 mmol/L (137-145); Total Bilirubin 0.5 mg/dL (0.2-1.3); Total Protein 7.5 g/dL (6.3-8.2)
--- NOTE | 2023-12-06 13:33 | ED ---
Abdominal Pain HPI - General Chief Complaint: Abdominal Pain Stated Complaint: R sided flank pain Time Seen by Provider: 12/06/23 10:49 Source: patient, RN notes reviewed Mode of arrival: ambulatory Limitations: no limitations - History of Present Illness Initial Comments: 68-year-old female presents emergency department chief complaint of right-sided abdominal pain, right flank pain. States wraps around her abdomen. States that she had a kidney stone the left side in the past this feels slightly different. States that she had a infected stone at that time. She does complain of some mild urinary frequency denies any significant nausea vomiting no chest pain or shortness of breath states the pain is quite severe at this time. - Related Data Home Medications Medication Instructions Recorded Confirmed Flecainide Acetate [Tambocor] 100 mg PO BID PRN 10/04/23 12/06/23 Metoprolol Succinate [Metoprolol 25 mg PO BID PRN 10/04/23 12/06/23 Succinate ER] Previous Rx's Medication Instructions Recorded Ketorolac [Toradol] 10 mg PO Q8HR #15 tab 12/06/23 methocarbamoL [Robaxin] 500 mg PO TID PRN #15 tab 12/06/23 Allergies Allergy/AdvReac Type Severity Reaction Status Date / Time latex Allergy Rash/Hives Verified 12/06/23 12:38 strawberry Allergy Rash/Hives Verified 12/06/23 12:38 codeine AdvReac Hallucinati Verified 12/06/23 12:38 ons Review of Systems ROS Statement: Those systems with pertinent positive or pertinent negative responses have been documented in the HPI. ROS Other: All systems not noted in ROS Statement are negative. Past Medical History Past Medical History: Atrial Fibrillation Additional Past Medical History / Comment(s): tumor (begein) uterus History of Any Multi-Drug Resistant Organisms: None Reported Past Surgical History: Section Past Anesthesia/Blood Transfusion Reactions: Unable to Obtain Past Psychological History: Anxiety Smoking Status: Never smoker Past Alcohol Use History: None Reported Past Drug Use History: None Reported General Exam Limitations: no limitations General appearance: alert, in no apparent distress Head exam: Present: atraumatic, normocephalic, normal inspection Eye exam: Present: normal appearance, PERRL, EOMI. Absent: scleral icterus, conjunctival injection, periorbital swelling Neck exam: Present: normal inspection. Absent: tenderness, meningismus, lymphadenopathy Respiratory exam: Present: normal lung sounds bilaterally. Absent: respiratory distress, wheezes, rales, rhonchi, stridor Cardiovascular Exam: Present: regular rate, normal rhythm, normal heart sounds. Absent: systolic murmur, diastolic murmur, rubs, gallop, clicks GI/Abdominal exam: Present: soft, tenderness, normal bowel sounds. Absent: distended, guarding, rebound, rigid Back exam: Present: CVA tenderness (R). Absent: CVA tenderness (L) Course Vital Signs 12/06/23 12/06/23 10:36 14:25 Temperature 97.8 F Pulse Rate 78 57 L Respiratory 18 20 Rate Blood Pressure 140/94 144/87 O2 Sat by Pulse 99 100 Oximetry Medical Decision Making - Medical Decision Making Was pt. sent in by a medical professional or institution (, PA, [employer], urgent care, hospital, or alf...) When possible be specific @ -No Did you speak to anyone other than the patient for history (EMS, parent, family, police, friend...)? What history was obtained from this source @ -No Did you review nursing and triage notes (agree or disagree)? Why? @ -I reviewed and agree with nursing and triage notes Were old charts reviewed (outside hosp., previous admission, EMS record, old EKG, old radiological studies, urgent care reports/EKG's, alf records)? Report findings @ -[Reviewed prior CT abdomen pelvis showing evidence of right ureteral calculus Differential Diagnosis (chest pain, altered mental status, abdominal pain women, abdominal pain men, vaginal bleeding, weakness, fever, dyspnea, syncope, headache, dizziness, GI bleed, back pain, seizure, CVA, palpatations, mental health, musculoskeletal)? @ -Differential Abdominal Pain Women: Appendicitis, Cholecystitis, diverticulosis, ischemic bowel, pancreatitis, hepatitis, UTI, gastroenteritis, AAA, incarcerated hernia, bowel obstruction, constipation, inflammatory bowel, hepatitis, peptic ulcer disease, splenic infarction, perforated viscus, vulvitis, ovarian torsion, PID, kidney stone, placenta abruption, this is not meant to be an all-inclusive list EKG interpreted by me (3pts min.). @ -As above X-rays interpreted by me (1pt min.). @ -None done CT interpreted by me (1pt min.). @ -CT pelvis with contrast showing no intra-abdominal process no current calculus or evidence of bowel infection U/S interpreted by me (1pt. min.). @ -None done What testing was considered but not performed or refused? (CT, X-rays, U/S, labs)? Why? @ -None What meds were considered but not given or refused? Why? @ -None Did you discuss the management of the patient with other professionals (professionals i.e. DrAric, PA, [employer], lab, RT, psych nurse, healthcare social worker, precision honer, teacher, operational intelligence officer, manager of case)? Give summary @ -No Was smoking cessation discussed for >3mins.? @ -No Was critical care preformed (if so, how long)? @ -No Were there social determinants of health that impacted care today? How? (Homelessness, low income, unemployed, alcoholism, drug addiction, transportation, low edu. Level, literacy, decrease access to med. care, care home, rehab)? @ -No Was there de-escalation of care discussed even if they declined (Discuss DNR or withdrawal of care, Hospice)? DNR status @ -No What co-morbidities impacted this encounter? (DM, HTN, Smoking, COPD, CAD, Cancer, CVA, ARF, Chemo, Hep., AIDS, mental health diagnosis, sleep apnea, morbid obesity)? @ -None Was patient admitted / discharged? Hospital course, mention meds given and route, prescriptions, significant lab abnormalities, going to OR and other pertinent info. @ -Discharge patient vitals, laboratory studies, CT are unremarkable patient pain is improved we discharged with analgesics for muscle skeletal pain. She will have close follow-up and recheck in 24 hours. Undiagnosed new problem with uncertain prognosis? @ -No Drug Therapy requiring intensive monitoring for toxicity (Heparin, Nitro, Insulin, Cardizem)? @ -No Were any procedures done? @ -No Diagnosis/symptom? @ -Flank pain, abdominal pain Acute, or Chronic, or Acute on Chronic? @ -Acute Uncomplicated (without systemic symptoms) or Complicated (systemic symptoms)? @ -Uncomplicated Side effects of treatment? @ -No Exacerbation, Progression, or Severe Exacerbation? @ -No Poses a threat to life or bodily function? How? (Chest pain, [place], [place], pneumonia, PE, COPD, DKA, ARF, appy, cholecystitis, CVA, Diverticulitis, Homicidal, S uicidal, threat to staff... and all critical care pts) @ -No - Lab Data Result diagrams: 12/06/23 11:47 12/06/23 11:47 Lab Results 12/06/23 12/06/23 12/06/23 Range/Units 11:47 11:47 11:47 WBC 6.4 (3.8-10.6) k/uL RBC 4.22 (3.80-5.40) m/uL Hgb 13.0 (11.4-16.0) gm/dL Hct 40.8 (34.0-46.0) % MCV 96.7 (80.0-100.0) fL MCH 30.9 (25.0-35.0) pg MCHC 31.9 (31.0-37.0) g/dL RDW 13.8 (11.5-15.5) % Plt Count 333 (150-450) k/uL MPV 8.9 Neutrophils % 64 % Lymphocytes % 28 % Monocytes % 6 % Eosinophils % 1 % Basophils % 1 % Neutrophils # 4.1 (1.3-7.7) k/uL Lymphocytes # 1.8 (1.0-4.8) k/uL Monocytes # 0.4 (0-1.0) k/uL Eosinophils # 0.1 (0-0.7) k/uL Basophils # 0.0 (0-0.2) k/uL Sodium 139 (137-145) mmol/L Potassium 3.9 (3.5-5.1) mmol/L Chloride 107 (98-107) mmol/L Carbon Dioxide 26 (22-30) mmol/L Anion Gap 6 mmol/L BUN 10 (7-17) mg/dL Creatinine 0.68 (0.52-1.04) mg/dL Est GFR (CKD-EPI)AfAm >90 (>60 ml/min/1.73 sqM) Est GFR (CKD-EPI)NonAf 90 (>60 ml/min/1.73 sqM) Glucose 90 (74-99) mg/dL Plasma Lactic Acid Bassem (0.7-2.0) mmol/L Calcium 10.2 (8.4-10.2) mg/dL Total Bilirubin 0.5 (0.2-1.3) mg/dL AST 21 (14-36) U/L ALT 14 (4-34) U/L Alkaline Phosphatase 130 H (38-126) U/L Total Protein 7.5 (6.3-8.2) g/dL Albumin 4.3 (3.5-5.0) g/dL Lipase 88 (23-300) U/L Urine Color Colorless Urine Appearance Clear (Clear) Urine pH 7.5 (5.0-8.0) Ur Specific [place] 1.005 (1.001-1.035) Urine Protein Negative (Negative) Urine Glucose (UA) Negative (Negative) Urine Ketones Negative (Negative) Urine Blood Trace H (Negative) Urine Nitrite Negative (Negative) Urine Bilirubin Negative (Negative) Urine Urobilinogen <2.0 (<2.0) mg/dL Ur Leukocyte Esterase Negative (Negative) Urine RBC 2 (0-5) /hpf Urine WBC 2 (0-5) /hpf Ur Squamous Epith Cells <1 (0-4) /hpf Urine Bacteria Rare H (None) /hpf 12/06/23 Range/Units 11:47 WBC (3.8-10.6) k/uL RBC (3.80-5.40) m/uL Hgb (11.4-16.0) gm/dL Hct (34.0-46.0) % MCV (80.0-100.0) fL MCH (25.0-35.0) pg MCHC (31.0-37.0) g/dL RDW (11.5-15.5) % Plt Count (150-450) k/uL MPV Neutrophils % % Lymphocytes % % Monocytes % % Eosinophils % % Basophils % % Neutrophils # (1.3-7.7) k/uL Lymphocytes # (1.0-4.8) k/uL Monocytes # (0-1.0) k/uL Eosinophils # (0-0.7) k/uL Basophils # (0-0.2) k/uL Sodium (137-145) mmol/L Potassium (3.5-5.1) mmol/L Chloride (98-107) mmol/L Carbon Dioxide (22-30) mmol/L Anion Gap mmol/L BUN (7-17) mg/dL Creatinine (0.52-1.04) mg/dL Est GFR (CKD-EPI)AfAm (>60 ml/min/1.73 sqM) Est GFR (CKD-EPI)NonAf (>60 ml/min/1.73 sqM) Glucose (74-99) mg/dL Plasma Lactic Acid Bassem 1.0 (0.7-2.0) mmol/L Calcium (8.4-10.2) mg/dL Total Bilirubin (0.2-1.3) mg/dL AST (14-36) U/L ALT (4-34) U/L Alkaline Phosphatase (38-126) U/L Total Protein (6.3-8.2) g/dL Albumin (3.5-5.0) g/dL Lipase (23-300) U/L Urine Color Urine Appearance (Clear) Urine pH (5.0-8.0) Ur Specific [place] (1.001-1.035) Urine Protein (Negative) Urine Glucose (UA) (Negative) Urine Ketones (Negative) Urine Blood (Negative) Urine Nitrite (Negative) Urine Bilirubin (Negative) Urine Urobilinogen (<2.0) mg/dL Ur Leukocyte Esterase (Negative) Urine RBC (0-5) /hpf Urine WBC (0-5) /hpf Ur Squamous Epith Cells (0-4) /hpf Urine Bacteria (None) /hpf Disposition Clinical Impression: Flank pain, Back pain Disposition: HOME SELF-CARE Condition: Stable Instructions (If sedation given, give patient instructions): Flank Pain (ED) Additional Instructions: Please return to the Emergency Department if symptoms worsen or any other concerns. Prescriptions: methocarbamoL [Robaxin] 500 mg PO TID PRN #15 tab PRN Reason: muscle spasms Ketorolac [Toradol] 10 mg PO Q8HR #15 tab Is patient prescribed a controlled substance at d/c from ED?: No Referrals: Jalil Pineda DO [Primary Care Provider] - 1-2 days Time of Disposition: 14:13
--- NOTE | 2023-12-06 13:44 | CT ---
EXAMINATION TYPE: CT abdomen pelvis w con CT DLP: 780.7 mGycm, Automated exposure control for dose reduction was used. DATE OF EXAM: 12/06/2023 1:21 PM COMPARISON: CT abdomen pelvis 09/16/2023 CLINICAL INDICATION:Female, 68 years old with history of abd pain, right side; Abdominal pain, histor y of renal stones TECHNIQUE: Standard CT of the abdomen and pelvis following the administration of 100 cc of Isovue 3 00 IV contrast material. Coronal and sagittal reformats were performed. FINDINGS: LOWER CHEST: Posterior dependent subsegmental atelectasis is noted. ABDOMEN LIVER: Hepatic cysts redemonstrated measuring up to 3.8 cm. Additional subcentimeter hypodense foci w hich are too small to accurately characterize but likely represent cysts. GALLBLADDER AND BILE DUCTS: Unremarkable. PANCREAS: Unremarkable. SPLEEN: Unremarkable. ADRENAL GLANDS: Unremarkable. KIDNEYS AND URETERS: No evidence of hydronephrosis. The kidneys enhance symmetrically. Apical thinnin g from previous insult to the left lateral mid kidney. Nonobstructive 3 mm right renal calculus. Cont rast is demonstrated within both collecting systems on the delayed phase. PELVIS BLADDER: Unremarkable REPRODUCTIVE: Unremarkable. ABDOMEN & PELVIS STOMACH AND BOWEL: Stomach and duodenum are unremarkable. No focal bowel wall thickening or surroundi ng inflammatory changes. The appendix is within normal limits. No evidence of bowel obstruction. PERITONEUM: No evidence of pneumoperitoneum or free fluid. VASCULATURE: No evidence of aortic aneurysm. Pelvic phleboliths redemonstrated. MUSCULOSKELETAL: No acute osseous abnormalities. Grade 2 anterolisthesis of L5 on S1 with bilateral p ars defects. LYMPH NODES: No gross evidence for lymphadenopathy. SOFT TISSUE/ABDOMINAL WALL: Unremarkable IMPRESSION: 1. No acute abdominal/pelvic process. No evidence for obstructive uropathy. 2. Nonobstructive left renal calculus. [facility], , 12/06/2023 1:42 PM
[2023-12-06 14:27] VITALS: BP 144/87; PULSE 57; RESP 20
== END 2023-12-06 14:27 | disposition home or self-care (01) ==
LOC: EC 10:28
DX: R10.31 Right lower quadrant pain
CPT/HCPCS: 36415; 74177; 80053; 81001; 83605; 83690; 85025; 96361; 96374; 99284

== ENCOUNTER → 2024-07-01 | Outpatient (CLI) | payer OTHER ==
--- NOTE | 2024-07-01 11:31 | MM ---
Reason for Exam: Screening (asymptomatic). Last mammogram was performed 4 year(s) and 1 month(s) ago. Patient History: Menarche at age 11. First Full-Term at age 27. Postmenopausal. Patient used Estrogen for 2 years. Patient used Progesterone for 2 years. Risk Values: Nazia 5 year model risk: 1.9%. NCI Lifetime model risk: 5.9%. Prior Study Comparison: 04/03/2019 Bilateral Screening Mammogram, [facility]. 04/05/2020 Bilateral Screening Mammogram, [facility]. 05/20/2020 Bilateral Diagnostic Mammogram, [facility]. Tissue Density: The breasts are heterogeneously dense, which may obscure small masses. Findings: Analyzed By CAD. There is no suspicious group of microcalcifications or new suspicious mass in either breast. Overall Assessment: Benign, BI-RAD 2 Management: Screening Mammogram of both breasts in 1 year. . Patient should continue monthly self-breast exams. A clinical breast exam by your physician is recommended on an annual basis. This exam should not preclude additional follow-up of suspicious palpable abnormalities. Note on Nazia scores and lifetime risk: 1. A Nazia score greater than 3% is considered moderate risk. If this is the case, consider specialist referral to assess eligibility for a risk reducing agent. 2. If overall lifetime risk for the development of breast cancer is 20% or higher, the patient may qualify for future screening with alternating mammogram and breast MRI. [facility], , 07/01/2024 11:29 AM. Electronically signed and approved by: Jacek Welsh M.D. Radiolog[facility]
== END | disposition home or self-care (01) ==
LOC: RADMAMWWP 11:02
PROVIDERS: ATTEND Family Medicine
DX: Z12.31 Encounter for screening mammogram for malignant neoplasm of breast (principal); R92.333 Mammographic heterogeneous density, bilateral breasts; Z78.0 Asymptomatic menopausal state
CPT/HCPCS: 77063; 77067